=== PATIENT | male | born 1945 | race Caucasian/White ===

== ENCOUNTER 2020-05-28 09:44 | Outpatient (CLI) | payer BC, MEDICARE, SELFPAY ==
--- NOTE | ~2020-05-28 | XR_ITS ---
XR hip LT min 2V DATE: 05/28/2020 10:23 INDICATION: Left hip pain TECHNIQUE: AP, lateral and cross table lateral views COMPARISON: None FINDINGS: Mild left hip osteoarthritis. No fracture, dislocation, avascular necrosis or bone destru ction. The pubic symphysis and left sacroiliac joint are normal. Surgical clips overlie prostate bed. IMPRESSION: Mild left hip osteoarthritis Reviewed, dictated and finalized at location B.
== END 2020-05-28 09:45 | disposition home or self-care (01) ==
PROVIDERS: PCP Internal Medicine; Visit Provider Internal Medicine
DX: M16.12 Unilateral primary osteoarthritis, left hip (principal)
CPT/HCPCS: 73502

== ENCOUNTER 2020-08-25 13:31 | Outpatient (CLI) | payer BC, MEDICARE, SELFPAY ==
--- NOTE | ~2020-08-25 | US_ITS ---
EXAMINATION: US art doppler w press LE BI DATE: 08/25/2020 14:15 INDICATION: Peripheral vascular disease with claudication and numbness and tingling in the lower limb s. TECHNIQUE: Segmental pressures and plethysmographic and Doppler waveforms of the brachial and lower e xtremity arteries were obtained. COMPARISON: None. FINDINGS: Right and left brachial artery pressures of 160 mm Hg and 170 mm Hg, respectively, are concordant (no rmal difference <= 30 mmHg). The right and left high-thigh pressure indices are unable to be obtained due to inability to occlude the vessels (normal > 1.2). The right ankle-brachial index (SAROJ) is 1.06 (normal >= 0.9-1). The right great toe-brachial index (T BI) is 0.75 (normal >= 0.6-0.8). The right lower extremity segmental pressure gradients are increased between the right posterior tibial artery and both the right popliteal and dorsalis pedis arteries ( normal gradients <= 20-30 mmHg between adjacent levels on the same leg or the same levels on the two legs). Arterial waveforms are triphasic at the right common femoral artery and popliteal artery and b iphasic at the remaining arteries in the right lower limb with brisk systolic upstrokes throughout. The left SAROJ is 0.97. The left TBI is 0.51. The left lower extremity segmental pressure gradients are increased between the left dorsalis pedis artery and both the right dorsalis pedis artery and the le ft posterior tibial artery. Arterial waveforms are triphasic at the left common femoral and popliteal arteries and biphasic in the remaining arteries of the left lower limb with brisk systolic upstrokes throughout. IMPRESSION: 1. 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 2. No significant arterial occlusive disease to the right lower limb with normal right SAROJ and TBI. 3. Hypertension with systolic pressures at the brachial arteries of 160 and 170. Reviewed, dictated and finalized at location A. IMPRESSION: 1. 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 2. No significant arterial occlusive disease to the right lower limb with kenneth l right SAROJ and TBI. 3. Hypertension with systolic pressures at the brachial arteries of 160 and 170 .
--- NOTE | ~2020-08-25 | CT_ITS ---
EXAMINATION: CT lung screening DATE: 08/25/2020 14:23 INDICATION: Personal history of tobacco dependence, current smoker with 41 pack year history TECHNIQUE: Computed tomography (CT) of the chest was performed without intravenous contrast. The dose -length product (DLP) was 137.20 mGy-cm. Automated exposure control and iterative reconstruction tech [employer] were employed. COMPARISON: 08/06/2019 FINDINGS: There is mild emphysema. There are stable 6 mm nodules of the left upper lobe, left lower l obe, and the right middle lobe (images 39, 82, and 92, respectively). There is mild emphysema. No new pulmonary nodules are identified. 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 No p leural effusion or pneumothorax is identified. There is a small sliding hiatal hernia. Moderate thora cic spondylosis is noted. There is mild bilateral gynecomastia. No pathologically enlarged thoracic l ymph nodes are identified. The heart size is normal. Changes of coronary artery bypass grafting are n oted. Stones are present in the nondistended gallbladder. Punctate calcifications in an otherwise nor mal spleen likely represent healed granulomatous disease. IMPRESSION: 1. Lung-RADS category 2: Benign appearance or behavior. Continue annual screening with noncontrast lo w-dose chest CT in 12 months. Reviewed, dictated and finalized at location A. IMPRESSION: 1. Lung-RADS category 2: Benign appearance or behavior. Continue annual screeni ng with noncontrast low-dose chest CT in 12 months.
== END 2020-08-25 13:32 | disposition home or self-care (01) ==
LOC: ANHIMG 13:39
PROVIDERS: PCP Internal Medicine; Visit Provider Internal Medicine
DX: Z12.2 Encounter for screening for malignant neoplasm of respiratory organs (principal); Z87.891 Personal history of nicotine dependence; I70.90 Unspecified atherosclerosis; M79.89 Other specified soft tissue disorders; R09.89 Other specified symptoms and signs involving the circulatory and respiratory systems
CPT/HCPCS: 93923; G0297

== ENCOUNTER → 2021-04-11 01:58 | Outpatient (CLI) | payer BC, MEDICARE, SELFPAY ==
[2021-04-11 19:55] LABS: SARS-CoV-2 RNA PCR Negative
== END ==
PROVIDERS: PCP Internal Medicine; Visit Provider Internal Medicine Gastroenterology
DX: Z01.812 Encounter for preprocedural laboratory examination (principal); Z20.822 Contact with and (suspected) exposure to COVID-19
CPT/HCPCS: C9803; U0003; U0005

== ENCOUNTER 2021-04-15 02:10 | Day surgery (SDC) | payer BC, MEDICARE, SELFPAY ==
[2021-04-03 14:26] VITALS: BMI 26.4
[2021-04-15 08:33] VITALS: BP 151/62; PULSE 88; RESP 18; TEMP 35.7; O2SAT 99; BMI 25.0
--- NOTE | 2021-04-15 08:34 | PM.HPGS ---
History of Present Illness History of Present Illness Consent: Risks, benefits, and alternatives have been discussed and questions answered. Patient agrees to proceed with procedure. Chief complaint: positive cologuard Narrative: Duarte Felipe is a 75 year old male referred for colon cancer screening Review of Systems Review of Systems: All systems reviewed & are unremarkable except as noted in HPI and below PMFSH Past Medical History Medical History ASHD (arteriosclerotic heart disease) Benign essential hypertension BMI 25.0-25.9,adult BMI 26.0-26.9,adult Colon cancer screening Diminished pulses in lower extremity DJD (degenerative joint disease), multiple sites Elevated glucose Elevated homocysteine Encounter for routine adult health examination without abnormal findings Erectile dysfunction Follow up History of prostate cancer Left hip pain Leg cramps Mixed hyperlipidemia Need for influenza vaccination On correction drug therapy Personal history of nicotine dependence Positive colorectal cancer screening using Cologuard test Prostate cancer PVD (peripheral vascular disease) Smoker Tobacco abuse Surgical History Surgical History History of open heart surgery Family History Family History Father Acute myocardial infarction Sibling Diabetes mellitus Family history of liver disease Social History Social History Smoking packs per day: 1 Smoking cigarettes per day: 20.0 Years smoked: 50 Smoking pack-years: 50.00 Smoking status: Current every day smoker Tobacco type: cigarettes Alcohol intake: never Substance use: never Substance use type: does not use Living arrangements: with family Spiritual care concerns: No Meds Home Medications and Allergies Home Medications Medication Instructions Recorded Confirmed Type aspirin 81 mg tablet,delayed 81 mg PO DAILY 11/26/19 04/15/21 History release mecobalamin (vitamin B12) 1,000 1,000 mcg SUBLINGUAL DAILY 04/30/20 04/15/21 History mcg disintegrating tablet,sublingual folic acid 1 mg tablet 1 mg PO DAILY #90 tablet 09/23/20 04/15/21 Rx ezetimibe 10 mg tablet 10 mg PO DAILY #90 tablet 02/19/21 04/15/21 Rx atorvastatin 80 mg tablet 80 mg PO DAILY #90 tablet 03/11/21 04/15/21 Rx bupropion HCl 150 mg 24 hr tablet, 150 mg PO QAM #30 tablet 03/16/21 04/15/21 Rx extended release losartan 100 mg tablet See Rx Instructions .ROUTE 04/09/21 04/15/21 Rx .COMPLEX #90 tablet Allergies Allergy/AdvReac Type Severity Reaction Status Date / Time No Known Allergies Allergy Mild Verified 04/15/21 08:31 Exam Resp: Auscultation: clear to auscultation bilaterally Cardio: Rate: regular rate Rhythm: regular rhythm GI: GI Palp: Yes Soft to palpation and No Tenderness to palpation present (GI) Assessment and Plan Assessment and plan (1) Positive colorectal cancer screening using Cologuard test: Code(s): R19.5 - Other fecal abnormalities Status: Acute Assessment and Plan: Colonoscopy with possible biopsy or polypectomy or cautery or injection of substances.
[2021-04-15] MEDS: LACTATED RINGERS 1,000 ML 150 ML IV CONT (08:36)
--- NOTE | 2021-04-15 08:41 | WPDANESEPPF ---
Anes - Initial Pre Proc Eval Procedure: Operation Date: 04/15/21 09:00 Proposed Procedures p Colonoscopy - Julius Goodrich MD Date/Time: 04/15/21 08:41 Surgeon: Julius Goodrich MD Pre Op Diagnosis: positive cologuard Patient Data Age: 75 Gender: M Height: 6 ft Weight: 83.7 kg Last Vital Signs Temp 96.3 F L 04/15/21 08:33 Pulse 88 04/15/21 08:33 Resp 18 04/15/21 08:33 BP 151/62 H 04/15/21 08:33 Pulse Ox 99 04/15/21 08:33 Allergies Allergy/AdvReac Type Severity Reaction Status Date / Time No Known Allergies Allergy Mild Verified 04/15/21 08:31 Home Medications Medication Instructions Recorded Confirmed Type aspirin 81 mg tablet,delayed 81 mg PO DAILY 11/26/19 04/15/21 History release mecobalamin (vitamin B12) 1,000 1,000 mcg SUBLINGUAL DAILY 04/30/20 04/15/21 History mcg disintegrating tablet,sublingual folic acid 1 mg tablet 1 mg PO DAILY #90 tablet 09/23/20 04/15/21 Rx ezetimibe 10 mg tablet 10 mg PO DAILY #90 tablet 02/19/21 04/15/21 Rx atorvastatin 80 mg tablet 80 mg PO DAILY #90 tablet 03/11/21 04/15/21 Rx bupropion HCl 150 mg 24 hr tablet, 150 mg PO QAM #30 tablet 03/16/21 04/15/21 Rx extended release losartan 100 mg tablet See Rx Instructions .ROUTE 04/09/21 04/15/21 Rx .COMPLEX #90 tablet Patient hx anesthesia problems: none Family hx anesthesia problems: none PMFSH Past Medical History Medical History ASHD (arteriosclerotic heart disease) Benign essential hypertension BMI 25.0-25.9,adult BMI 26.0-26.9,adult Colon cancer screening Diminished pulses in lower extremity DJD (degenerative joint disease), multiple sites Elevated glucose Elevated homocysteine Encounter for routine adult health examination without abnormal findings Erectile dysfunction Follow up History of prostate cancer Left hip pain Leg cramps Mixed hyperlipidemia Need for influenza vaccination On long term care pharmacist drug therapy Personal history of nicotine dependence Positive colorectal cancer screening using Cologuard test Prostate cancer PVD (peripheral vascular disease) Smoker Tobacco abuse Surgical History Surgical History History of open heart surgery Family History Family History Father Acute myocardial infarction Sibling Diabetes mellitus Family history of liver disease Social History Social History Smoking packs per day: 1 Smoking cigarettes per day: 20.0 Years smoked: 50 Smoking pack-years: 50.00 Smoking status: Current every day smoker Tobacco type: cigarettes Alcohol intake: never Substance use: never Substance use type: does not use Living arrangements: with family Spiritual care concerns: No Anes - Eval Final PreProcedure Day of Procedure 04/15/21 08:41 Patient weight: overweight Heart: regular rate and rhythm Lungs: clear to auscultation Airway: Mallampati scale class III Neurological: alert and oriented Last oral intake: >/= 8 hours ASA classification: III Emergent: no Anesthetic plan: proceed Anesthesia type and monitoring: general GIVS and standard monitoring Informed Consent: The patient's anesthetic plan and its attendant risks and benefits were discussed with the patient/family/POA. Questions were solicited and answers provided to the satisfaction of the patient/family/POA.
[2021-04-15 09:28] VITALS: BP 103/56; PULSE 75; RESP 23; O2SAT 93
[2021-04-15 09:38] VITALS: BP 110/62; PULSE 77; RESP 28; O2SAT 98
[2021-04-15 09:48] VITALS: BP 129/64; PULSE 75; RESP 21; O2SAT 98
== END 2021-04-15 10:09 | disposition home or self-care (01) ==
PROVIDERS: PCP Internal Medicine; Visit Provider Internal Medicine Gastroenterology
PROC: 0DJD8ZZ Inspection of Lower Intestinal Tract, Via Natural or Artificial Opening Endoscopic (ICD-10-PCS; CPT 45378; principal; 2021-04-15 09:00)
DX: R19.5 Other fecal abnormalities (principal); D12.5 Benign neoplasm of sigmoid colon; D12.3 Benign neoplasm of transverse colon; I25.10 Atherosclerotic heart disease of native coronary artery without angina pectoris; I10 Essential (primary) hypertension; I73.9 Peripheral vascular disease, unspecified; C61 Malignant neoplasm of prostate; E78.2 Mixed hyperlipidemia; R73.9 Hyperglycemia, unspecified; M15.9 Polyosteoarthritis, unspecified; R09.89 Other specified symptoms and signs involving the circulatory and respiratory systems; F17.200 Nicotine dependence, unspecified, uncomplicated; Z79.899 Other long term (current) drug therapy
CPT/HCPCS: 45385; 45380; 88305; J2704; J7120

== ENCOUNTER 2021-07-17 07:41 | Outpatient (CLI) | payer BC, MEDICARE, SELFPAY ==
--- NOTE | ~2021-07-17 | XR_ITS ---
EXAMINATION: XR UGI w barium swallow EXAM DATE: 07/17/2021 08:14 INDICATION: D50.9 - Iron deficiency anemia, unspecified. TECHNIQUE: Standard single and double contrast barium esophagram and upper GI examination was perform ed by radiologist Kwadwo Wu M.D. Pulsed dose reduction fluoroscopy was used with fluoroscopic time of 0.5 minutes. The DAP for this procedure was 1.2 Gycm2. A total of 101 images obtained for the e xam. Correlation is made to chest CT 08/25/2020. FINDINGS: The pharynx is symmetric and without evidence of mass lesion or mucosal irregularity. Ther e is no esophageal stricture, diverticulum or mass identified. There is moderate-sized sliding gastr oesophageal hiatal hernia. Reflux was not specifically demonstrated during the exam. The stomach has a normal appearance without evidence of mass lesion, ulceration or filling defect. T here is normal rugal fold pattern. The duodenum and duodenal sweep are normal in appearance. There is a retrocardiac nodular density seen on several of the images. Correlation made to prior ches t CT, this is the 1 cm calcified left lower lobe granuloma. IMPRESSION: Moderate sliding gastroesophageal hiatal hernia. Reviewed, dictated and finalized at location A.
== END 2021-07-17 07:42 | disposition home or self-care (01) ==
LOC: ANHIMG 07:42
PROVIDERS: PCP Internal Medicine; Visit Provider Internal Medicine
DX: D50.9 Iron deficiency anemia, unspecified (principal); K44.9 Diaphragmatic hernia without obstruction or gangrene
CPT/HCPCS: 74240

== ENCOUNTER 2021-08-04 10:49 | Outpatient (CLI) | payer BC, MEDICARE, SELFPAY ==
--- NOTE | ~2021-08-04 | US_ITS ---
US renal BI 08/04/2021 11:45 Procedure: Realtime transabdominal ultrasound of the kidneys and bladder. Indication: Anemia Comparison: No prior studies for comparison. Findings: Renal echotexture is normal bilaterally without hydronephrosis, contour deforming mass or r enal calculus. The right kidney measures 10.6 cm and left kidney measures 12.2 cm. Bladder is not dis tended for evaluation. Impression: 1: Unremarkable renal ultrasound. No stones, masses or hydronephrosis. Reviewed, dictated and finalized at location A. Impression: 1: Unremarkable renal ultrasound. No stones, masses or hydronephrosis.
--- NOTE | ~2021-08-04 | US_ITS ---
EXAMINATION: US carotid duplex BI DATE: 08/04/2021 11:45 INDICATION: Carotid bruit TECHNIQUE: Grayscale, color Doppler, and pulsed Doppler images of the cervical carotid arteries were obtained. The degree of vessel stenosis is placed in one of the following categories: normal, <50%, 5 0-69%, >=70% but less than near-occlusion, near-occlusion, or total occlusion. Note that percent sten osis relative to normal distal artery lumen diameter is indirectly measured from velocity measurement s as described by Khoa, et al. Radiology 2003; 229:340-346. Notes: Normal: Peak systolic velocity <125 centimeters/sec and no plaque <50%. Peak systolic velocity <125 ( EDV <40; ICA/CCA PSV ratio <2.0; used these factors only a tandem lesions or low cardiac output or co ntralateral disease) 50-69 %: PSV 125-230 (EDV 40-100; ratio 2-4) >= 70% but less than near occlusion: PSV greater than 230 (EDV > 100; ratio> 4.0) Near Occlusion: PSV that is variable; markedly narrowed lumen Occlusion: Absent flow on color/spectral Doppler and no lumen on camacho scale. COMPARISON: None. FINDINGS: RIGHT: The right common carotid artery (CCA) peak systolic velocity (PSV) is 65 cm/s. The right internal car otid artery (ICA) PSV is 99 cm/s. The right ICA end-diastolic velocity (EDV) is 21 cm/s. The right IC A/CCA PSV ratio is 1.5. The external carotid artery (ECA) PSV is 388 cm/s. There is antegrade flow in the right vertebral artery. LEFT: The left CCA PSV is 97 cm/s. The left ICA PSV is 101 cm/s. The left ICA EDV is 22 cm/s. The left ICA/ CCA PSV ratio is 1.0. The ECA PSV is 81 cm/s. There is antegrade flow in the left vertebral artery. IMPRESSION: 1. Less than 50% stenosis in the right internal carotid artery by sonographic criteria. 2. Less than 50% stenosis in the left internal carotid artery by sonographic criteria. Reviewed, dictated and finalized at location A. IMPRESSION: 1. Less than 50% stenosis in the right internal carotid artery by sonographic letha hooker. 2. Less than 50% stenosis in the left internal carotid artery by sonographic reji acevedo.
== END 2021-08-04 10:50 | disposition home or self-care (01) ==
PROVIDERS: PCP Internal Medicine; Visit Provider Internal Medicine
DX: D50.9 Iron deficiency anemia, unspecified (principal); R09.89 Other specified symptoms and signs involving the circulatory and respiratory systems; I65.23 Occlusion and stenosis of bilateral carotid arteries
CPT/HCPCS: 76775; 93880

== ENCOUNTER 2021-08-26 08:47 | Outpatient (CLI) | payer BC, MEDICARE, SELFPAY ==
--- NOTE | ~2021-08-26 | CT_ITS ---
EXAMINATION:CT lung screening DATE: 08/26/2021 09:14 INDICATION: Personal history of tobacco dependence. Current smoker with 42 pack year history. TECHNIQUE: Computed tomography (CT) of the chest was performed without intravenous contrast. Automate d exposure control and iterative reconstruction technique were employed. The dose-length product (DLP ) was 139.75 mGy-cm. COMPARISON: Chest CT 08/25/2020 FINDINGS: There is mild emphysema. There is widespread peripheral septal thickening in the lungs asso ciated with groundglass opacities and architectural distortion, stable from 08/25/2020. No bronchiecta sis or honeycombing. Calcified bilateral lung nodules are consistent with old granulomatous disease. There is a 5 mm nodule in left upper lobe without change. There is a 7 mm nodule in lingula without c hange. No pleural effusion. The heart size is normal. There are coronary artery calcifications. There are changes of coronary bypass grafting. There is a small sliding hiatal hernia. There are gallstone s in the gallbladder, which is normal in size. Calcifications in the spleen are consistent with old g ranulomatous disease. There is mild thoracic spondylosis. IMPRESSION: 1. Lung-RADS category 2: Benign appearance or behavior. Continue annual screening with noncontrast lo w-dose chest CT in 12 months. Reviewed, dictated and finalized at location A. IMPRESSION: 1. Lung-RADS category 2: Benign appearance or behavior. Continue annual screeni ng with noncontrast low-dose chest CT in 12 months.
== END 2021-08-26 08:48 | disposition home or self-care (01) ==
LOC: ANHIMG 08:50
PROVIDERS: PCP Internal Medicine; Visit Provider Internal Medicine
DX: Z12.2 Encounter for screening for malignant neoplasm of respiratory organs (principal); Z87.891 Personal history of nicotine dependence
CPT/HCPCS: 71271

== ENCOUNTER 2021-09-04 00:46 | Day surgery (SDC) | payer BC, MEDICARE, SELFPAY ==
[2021-08-20 13:54] VITALS: BMI 25.1
--- NOTE | 2021-09-03 13:56 | PM.HPGS ---
History of Present Illness History of Present Illness Consent: Risks, benefits, and alternatives have been discussed and questions answered. Patient agrees to proceed with procedure. Chief complaint: BLAYNE Narrative: Duarte Felipe is a 75 year old male referred for investigation of iron deficiency anemia . Recent colonoscopy was negative except for the presence of 2 polyps. His iron saturation is 18% Review of Systems Review of Systems: All systems reviewed & are unremarkable except as noted in HPI and below PMFSH Past Medical History Medical History ASHD (arteriosclerotic heart disease) Benign essential hypertension BMI 24.0-24.9, adult BMI 25.0-25.9,adult BMI 26.0-26.9,adult Carotid bruit Colon cancer screening Diminished pulses in lower extremity DJD (degenerative joint disease), multiple sites Elevated glucose Elevated homocysteine Encounter for routine adult health examination without abnormal findings Erectile dysfunction Follow up Hiatal hernia History of prostate cancer Iron deficiency anemia Left hip pain Leg cramps Mixed hyperlipidemia Need for influenza vaccination On meter attendant drug therapy Personal history of nicotine dependence Positive colorectal cancer screening using Cologuard test Prostate cancer PVD (peripheral vascular disease) Smoker Tobacco abuse Surgical History Surgical History History of open heart surgery Family History Family History Father Acute myocardial infarction Sibling Diabetes mellitus Family history of liver disease Social History Social History Smoking packs per day: 1 Smoking cigarettes per day: 20.0 Years smoked: 50 Smoking pack-years: 50.00 Smoking status: Current every day smoker Tobacco type: cigarettes Alcohol intake: never Alcohol use details: 3-4 drinks per monthly Substance use: never Substance use type: does not use Living arrangements: with family Spiritual care concerns: No Meds Home Medications and Allergies Home Medications Medication Instructions Recorded Confirmed Type aspirin 81 mg tablet,delayed 81 mg PO DAILY 11/26/19 08/20/21 History release atorvastatin 80 mg tablet 80 mg PO DAILY #90 tablet 03/11/21 08/20/21 Rx bupropion HCl 150 mg PO DAILY 08/20/21 08/20/21 History ezetimibe 10 mg PO DAILY 08/20/21 08/20/21 History losartan 100 mg PO DAILY 08/20/21 08/20/21 History Allergies Allergy/AdvReac Type Severity Reaction Status Date / Time No Known Allergies Allergy Mild Verified 09/04/21 09:39 Exam Resp: Auscultation: clear to auscultation bilaterally Cardio: Rate: regular rate Rhythm: regular rhythm GI: GI Palp: Yes Soft to palpation and No Tenderness to palpation present (GI) Assessment and Plan Assessment and plan (1) Iron deficiency anemia: Qualifiers: Iron deficiency anemia type: unspecified iron deficiency Qualified Code(s): D50.9 - Iron deficiency anemia, unspecified Code(s): D50.9 - Iron deficiency anemia, unspecified Status: Acute Assessment and Plan: EGD with possible biopsy or dilatation or cautery.
[2021-09-04 09:40] VITALS: BP 148/56; PULSE 89; RESP 18; TEMP 36.1; O2SAT 99
--- NOTE | 2021-09-04 09:46 | WPDANESEPPF ---
Anes - Initial Pre Proc Eval Procedure: Operation Date: 09/04/21 11:00 Proposed Procedures p Esophagogastroduodenoscopy - Julius Goodrich MD Date/Time: 09/04/21 09:46 Surgeon: Julius Goodrich MD Pre Op Diagnosis: BLAYNE Patient Data Age: 75 Gender: M Height: 1.83 m Weight: 83.1 kg Last Vital Signs Temp 36.1 C L 09/04/21 09:40 Pulse 89 09/04/21 09:40 Resp 18 09/04/21 09:40 BP 148/56 H 09/04/21 09:40 Pulse Ox 99 09/04/21 09:40 Allergies Allergy/AdvReac Type Severity Reaction Status Date / Time No Known Allergies Allergy Mild Verified 09/04/21 09:39 Home Medications Medication Instructions Recorded Confirmed Type aspirin 81 mg tablet,delayed 81 mg PO DAILY 11/26/19 08/20/21 History release atorvastatin 80 mg tablet 80 mg PO DAILY #90 tablet 03/11/21 08/20/21 Rx bupropion HCl 150 mg PO DAILY 08/20/21 08/20/21 History ezetimibe 10 mg PO DAILY 08/20/21 08/20/21 History losartan 100 mg PO DAILY 08/20/21 08/20/21 History Patient hx anesthesia problems: none Family hx anesthesia problems: none Results Review: All pre-operative results and documents have been reviewed as part of the pre-operative evaluation. [facility] Past Medical History Medical History ASHD (arteriosclerotic heart disease) Benign essential hypertension BMI 24.0-24.9, adult BMI 25.0-25.9,adult BMI 26.0-26.9,adult Carotid bruit Colon cancer screening Diminished pulses in lower extremity DJD (degenerative joint disease), multiple sites Elevated glucose Elevated homocysteine Encounter for routine adult health examination without abnormal findings Erectile dysfunction Follow up Hiatal hernia History of prostate cancer Iron deficiency anemia Left hip pain Leg cramps Mixed hyperlipidemia Need for influenza vaccination On terminologist drug therapy Personal history of nicotine dependence Positive colorectal cancer screening using Cologuard test Prostate cancer PVD (peripheral vascular disease) Smoker Tobacco abuse Surgical History Surgical History History of open heart surgery Family History Family History Father Acute myocardial infarction Sibling Diabetes mellitus Family history of liver disease Social History Social History Smoking packs per day: 1 Smoking cigarettes per day: 20.0 Years smoked: 50 Smoking pack-years: 50.00 Smoking status: Current every day smoker Tobacco type: cigarettes Alcohol intake: never Alcohol use details: 3-4 drinks per monthly Substance use: never Substance use type: does not use Living arrangements: with family Spiritual care concerns: No Anes - Eval Final PreProcedure Day of Procedure 09/04/21 09:46 Patient weight: normal Heart: regular rate and rhythm Lungs: clear to auscultation Airway: Mallampati scale class II Neurological: alert and oriented Last oral intake: >/= 8 hours ASA classification: III Emergent: no Anesthetic plan: proceed Anesthesia type and monitoring: general GIVS and standard monitoring Results Review: All pre-operative results and documents have been reviewed as part of the pre-operative evaluation. Informed Consent: The patient's anesthetic plan and its attendant risks and benefits were discussed with the patient/family/POA. Questions were solicited and answers provided to the satisfaction of the patient/family/POA.
[2021-09-04] MEDS: LACTATED RINGERS 1,000 ML 150 ML IV CONT (09:54)
[2021-09-04 10:54] VITALS: BP 93/44; PULSE 75; RESP 20; O2SAT 98
[2021-09-04 11:04] VITALS: BP 108/46; PULSE 82; RESP 20; O2SAT 98
[2021-09-04 11:14] VITALS: BP 150/76; PULSE 76; RESP 17; O2SAT 100
== END 2021-09-04 11:24 | disposition home or self-care (01) ==
PROVIDERS: PCP Internal Medicine; Visit Provider Internal Medicine Gastroenterology
PROC: 0DJ08ZZ Inspection of Upper Intestinal Tract, Via Natural or Artificial Opening Endoscopic (ICD-10-PCS; CPT 43235; principal; 2021-09-04 11:00)
DX: D50.9 Iron deficiency anemia, unspecified (principal); K25.9 Gastric ulcer, unspecified as acute or chronic, without hemorrhage or perforation; K21.9 Gastro-esophageal reflux disease without esophagitis; K44.9 Diaphragmatic hernia without obstruction or gangrene; I25.10 Atherosclerotic heart disease of native coronary artery without angina pectoris; I10 Essential (primary) hypertension; I73.9 Peripheral vascular disease, unspecified; E78.2 Mixed hyperlipidemia; Z85.46 Personal history of malignant neoplasm of prostate; F17.210 Nicotine dependence, cigarettes, uncomplicated; Z79.82 Long term (current) use of aspirin
CPT/HCPCS: 43239; 87081; 88305; J2001; J2704; J7120

== ENCOUNTER 2022-04-07 12:19 | Outpatient (CLI) | payer BC, MEDICARE, SELFPAY ==
--- NOTE | ~2022-04-07 | XR_ITS ---
EXAM: XR shoulder RT min 2V HISTORY: M25.511 - Pain in right shoulder . COMPARISON: 11/06/2005. FINDINGS: Decreased mineralization. No fracture or dislocation. No lytic or blastic lesion. Severe b karol humeral narrowing with subchondral cyst formation and osteophytosis. Moderate degenerative change at the AC joint. Visualized lung parenchyma clear. Intact sternotomy wires. No erosion or periosteal change. Vascular calcifications. IMPRESSION: Severe right glenohumeral joint arthritis. Reviewed, dictated and finalized at location K.
--- NOTE | ~2022-04-07 | XR_ITS ---
EXAM: XR lumbar spine 2-3V HISTORY: NO INJURY LOW BACK AND RIGHT SHOULDER PAIN . COMPARISON: None available. FINDINGS: 5 nonrib-bearing lumbar-type vertebral bodies. Mild lumbar scoliosis Pedicles intact. Mild retrolisthesis at all levels in the lumbar spine. Vertebral body heights preserved. Multilevel sever e disc space narrowing, marginal osteophytosis, and vacuum disc phenomenon. Multilevel facet sclerosi s and interspinous narrowing. 3.7 cm infrarenal abdominal aortic aneurysm. Nephrolithiasis. IMPRESSION: 3.7 cm infrarenal abdominal aortic aneurysm, recommend abdominal aortic ultrasound for fu rther characterization. Multilevel grade 1 listheses, presumably on a degenerative basis. Multilevel severe degenerative disc disease. Multilevel facet arthropathy. Reviewed, dictated and finalized at location K. IMPRESSION: 3.7 cm infrarenal abdominal aortic aneurysm, recommend abdominal ao rtic ultrasound for further characterization. Multilevel grade 1 listheses, pre sumably on a degenerative basis. Multilevel severe degenerative disc disease. M ultilevel facet arthropathy.
== END 2022-04-07 12:20 | disposition home or self-care (01) ==
PROVIDERS: PCP Internal Medicine; Visit Provider Internal Medicine
DX: M51.36 Other intervertebral disc degeneration, lumbar region (principal); M19.011 Primary osteoarthritis, right shoulder
CPT/HCPCS: 72100; 73030

== ENCOUNTER 2022-04-23 10:21 | Outpatient (CLI) | payer BC, MEDICARE, SELFPAY ==
--- NOTE | ~2022-04-23 | US_ITS ---
EXAMINATION: US aorta DATE: 04/23/2022 11:28 INDICATION: Abdominal aortic aneurysm screening TECHNIQUE: Grayscale, color Doppler, and pulsed Doppler images of the aorta and common iliac arteries were obtained. COMPARISON: 12/04/2019 FINDINGS: The proximal aorta measures 2.8 cm. The mid aorta measures 1.9 cm. The distal aorta measures 2.8 cm. The right common iliac artery measures 1.3 cm. The left common iliac artery measures 1.2 cm. IMPRESSION: 1. Normal caliber abdominal aorta. Reviewed, dictated and finalized at location B.
== END 2022-04-23 10:22 | disposition home or self-care (01) ==
PROVIDERS: PCP Internal Medicine; Visit Provider Internal Medicine
DX: I71.4 Abdominal aortic aneurysm, without rupture (principal)
CPT/HCPCS: 76775

== ENCOUNTER 2022-08-24 11:48 | Outpatient (CLI) | payer BC, MEDICARE, SELFPAY ==
[2022-08-24 12:31] LABS: Basophils Percent Auto 0.5 % (0.2-1.2); Eosinophils Absolute Auto 0.1 K/mm3 (0-0.3); Eosinophils Percent Auto 0.9 % (0-4.4); Hematocrit 30.5 % (42.0-52.0); Hemoglobin 9.4 g/dL (14.0-18.0); Immature Granulocyte Absolute 0.03 K/mm3 (0.00-0.031); Immature Granulocyte Percent A 0.4 % (0-0.5); Lymphocytes Absolute Auto 1.11 K/mm3 (0.9-3.2); Lymphocytes Percent Auto 14.6 % (18.3-44.2); Mean Corpuscular HGB Conc 30.8 g/dl (32-36); Mean Corpuscular Hemoglobin 28.7 pg (26-34); Mean Corpuscular Volume 93.3 fl (80-100); Mean Platelet Volume 9.4 fl (7.4-10.4); Monocytes Absolute Auto 0.6 K/mm3 (0.1-0.6); Monocytes Percent Auto 7.6 % (2.6-8.5); Neutrophils Absolute Auto 5.8 K/mm3 (1.3-6.7); Platelet Count Result 259 k/mm3 (150-375); Red Blood Count 3.27 M/mm3 (4.6-6.20); Red Cell Distribution Width 15.6 % (11.5-14.5); White Blood Count 7.6 K/mm3 (4.5-10.0)
[2022-08-24 12:49] LABS: Anion Gap 10 mmol/L (8-16); Blood Urea Nitrogen 17 mg/dL (9-20); Calcium 8.9 mg/dL (8.4-10.2); Carbon Dioxide 20 mmol/L (22-30); Chloride 109 mmol/L (98-107); Estimated Glomerular Filt Rate 59; Glucose 110 mg/dL (65-110); Potassium 4.2 mmol/L (3.4-5.0); Sodium 139 mmol/L (137-145)
== END 2022-08-24 11:49 | disposition home or self-care (01) ==
PROVIDERS: PCP Internal Medicine; Visit Provider Internal Medicine
DX: K92.1 Melena (principal); D50.9 Iron deficiency anemia, unspecified; Z92.29 Personal history of other drug therapy
CPT/HCPCS: 36415; 80048; 85025

== ENCOUNTER 2022-10-07 09:21 | Observation (INO) | payer BC, MEDICARE, SELFPAY ==
--- NOTE | ~2022-10-07 | XR_ITS ---
XR chest 2V DATE: 10/07/2022 10:29 INDICATION: Shortness of breath with activity TECHNIQUE: PA and lateral views COMPARISON: 08/26/2021 CT lung screening FINDINGS: Status post sternotomy. Heart size is within normal range. Small sliding hiatal hernia. Calcified left lower lobe pulmonary granuloma. Minimal infiltrate, atelectasis or fibrotic change in the right midlung and right lung base, likely c hronic, with changes noted on 08/26/2021 CT examination in these areas. No pulmonary consolidation, pleural effusion, pulmonary vascular congestion or pneumothorax. No hilar or mediastinal enlargement. There is thoracic aortic calcification. IMPRESSION: Mild chronic right mid and lower lung changes No active cardiopulmonary disease Hiatal hernia Status post sternotomy Aortic calcification Reviewed, dictated and finalized at location B. E LAYOUT MARKER
--- NOTE | 2022-10-07 09:42 | ECG_ITS ---
Measurements Intervals [place] Rate: 81 P: 233 [place]: 318 QRS: 24 QRSD: 98 T: 61 QT: 367 QTc: 426 Interpretive Statements SINUS RHYTHM WITH MARKED FIRST DEGREE AV BLOCK CONSIDER INFERIOR INFARCT, AGE INDETERMINATE BORDERLINE ST-T WAVE ABNORMALITY- LAT/HIGH LAT LEADS BASELINE ARTIFACT- III, AVL, AVF, V6 ABNORMAL ECG NO PREVIOUS ECG AVAILABLE FOR COMPARISON Electronically Signed On 10-07-2022 11:07:22 [employer] by Jose Trevino D.O.
[2022-10-07 10:15] VITALS: BP 161/64; PULSE 83; RESP 14; TEMP 36.5; O2SAT 99
[2022-10-07 10:16] LABS: Basophils Percent Auto 0.4 % (0.2-1.2); Eosinophils Absolute Auto 0.1 K/mm3 (0-0.3); Eosinophils Percent Auto 1.5 % (0-4.4); Hematocrit 26.6 % (42.0-52.0); Hemoglobin 7.8 g/dL (14.0-18.0); Immature Granulocyte Absolute 0.06 K/mm3 (0.00-0.031); Immature Granulocyte Percent A 0.7 % (0-0.5); Lymphocytes Absolute Auto 1.17 K/mm3 (0.9-3.2); Lymphocytes Percent Auto 13.7 % (18.3-44.2); Mean Corpuscular HGB Conc 29.3 g/dl (32-36); Mean Corpuscular Hemoglobin 26.4 pg (26-34); Mean Corpuscular Volume 89.9 fl (80-100); Mean Platelet Volume 9.8 fl (7.4-10.4); Monocytes Absolute Auto 0.5 K/mm3 (0.1-0.6); Monocytes Percent Auto 6.3 % (2.6-8.5); Neutrophils Absolute Auto 6.6 K/mm3 (1.3-6.7); Neutrophils Percent Auto 77.4 % (45.5-73.1); Platelet Count Result 334 k/mm3 (150-375); Red Blood Count 2.96 M/mm3 (4.6-6.20); Red Cell Distribution Width 16.6 % (11.5-14.5); White Blood Count 8.6 K/mm3 (4.5-10.0)
[2022-10-07 10:27] LABS: Prothrombin Time 13.2 Seconds (11.1-14.7)
[2022-10-07 10:32] LABS: Alanine Aminotransferase 28 U/L (6-50); Alkaline Phosphatase 66 U/L (38-126); Anion Gap 11 mmol/L (8-16); Aspartate Amino Transferase 48 U/L (17-59); Bilirubin,Total 0.7 mg/dL (0.2-1.3); Blood Urea Nitrogen 15 mg/dL (9-20); Calcium 8.8 mg/dL (8.4-10.2); Carbon Dioxide 23 mmol/L (22-30); Chloride 103 mmol/L (98-107); Estimated Glomerular Filt Rate > 60; Glucose 140 mg/dL (65-110); Sodium 137 mmol/L (137-145)
[2022-10-07 10:44] LABS: Hypochromasia 1+ (NORMAL); Microcytosis 1+ (NORMAL); Platelet Estimate Adequate (Adequate); Schistocytes None Seen (NORMAL)
[2022-10-07 10:51] LABS: Appearance Urine Clear (Clear); Bilirubin Urine Negative (Negative); Blood Urine Negative (Negative); Color Urine Yellow (Yellow); Glucose Urine UA Negative (Negative); Ketones Urine Negative (Negative); Leukocyte Esterase Ur Negative LEU/UL (Negative); Nitrate Urine Negative (Negative); Protein Urine Negative (Negative); Urobilinogen Urine 0.2 mg/dL (<2.0); pH Urine 6.5 (5.0-9.0)
[2022-10-07 10:56] LABS: Add Urine Microscopic? NO
--- NOTE | 2022-10-07 11:22 | ED.GENADULT ---
HPI - General Adult General Chief complaint: Recheck/Abnormal Lab/Rx Stated complaint: low hgb Time Seen by Provider: 10/07/22 10:38 Source: patient and family Limitations: no limitations History of Present Illness HPI narrative: 76 years old white male presents with intermittent rectal bleeding for the last 4 to 5 months. Yesterday hemoglobin was 7.4. To 9.4 on August 24, 2022. Patient on Plavix and aspirin. He complains of general weakness, fatigue, stuffed head and coughing lately. He denies ill contact Related Data Home Medications Medication Instructions Recorded Confirmed aspirin 81 mg tablet,delayed 81 mg PO DAILY 11/26/19 08/27/22 release (Adult Low Dose Aspirin) cholecalciferol (vitamin D3) 25 25 mcg PO DAILY 11/25/21 08/27/22 mcg (1,000 unit) capsule ticagrelor 60 mg tablet (Brilinta) 60 mg PO Q12H 07/21/22 08/27/22 acetaminophen 500 mg tablet 500 mg PO Q6H PRN Pain 08/12/22 08/27/22 (Tylenol Extra Strength) vitamin B12 500 mcg-folic acid 400 1 tablet PO DAILY 08/12/22 08/27/22 mcg tablet Fiber Choice 2 QAM regularity 08/27/22 Allergies Allergy/AdvReac Type Severity Reaction Status Date / Time No Known Allergies Allergy Mild Verified 09/14/22 10:31 Review of Systems Review of Systems: All systems reviewed & are unremarkable except as noted in HPI and below PMFSH Past Medical History Medical History Antral ulcer ASHD (arteriosclerotic heart disease) Benign essential hypertension BMI 24.0-24.9, adult BMI 25.0-25.9,adult BMI 26.0-26.9,adult Borderline abnormal TFTs Carotid bruit Chronic low back pain Colon cancer screening Diminished pulses in lower extremity DJD (degenerative joint disease), multiple sites Elevated glucose Elevated homocysteine Encounter for routine adult health examination with abnormal findings Encounter for routine adult health examination without abnormal findings Erectile dysfunction Follow up Hiatal hernia History of bruising easily History of prostate cancer History of stress test Hypertension Iron deficiency anemia Left hip pain Leg cramps Leg cramps Loose stools Lung nodule Mixed hyperlipidemia Need for influenza vaccination Nonspecific urethritis On usp drug therapy Pain of male genitalia Personal history of nicotine dependence Positive colorectal cancer screening using Cologuard test Prostate cancer Prostate cancer screening PVCs (premature ventricular contractions) PVD (peripheral vascular disease) Right shoulder pain Smoker Swelling of right eye Tobacco abuse Surgical History Surgical History History of dental surgery History of open heart surgery S/P CABG x 4 Family History Family History Father Acute myocardial infarction Sibling Diabetes mellitus Family history of liver disease Social History Social History Smoking packs per day: 1 Smoking cigarettes per day: 20.0 Years smoked: 50 Smoking pack-years: 50.00 Smoking status: Current every day smoker Tobacco type: cigarettes Alcohol intake: never Alcohol use details: 3-4 drinks per monthly Substance use: never Substance use type: does not use Spiritual care concerns: No Exam Narrative: General appearance: Well-developed, well-nourished Skin: Pale Head: Normocephalic, nontraumatic Eyes: Clear conjunctiva ENT: Oropharynx normal, ears normal, nose normal Neck: Supple, nontender Chest and respiratory: Airway patent, no respiratory distress, no accessory muscle use Heart: Regular rate/rhythm Abdomen: Soft, nontender, no organomegaly, quiet bowel sounds, rectal exam showed red material, guaiac negative Vascular: Normal peripheral pulses, normal capillary refill. Musculoskeletal: Normal range of motion, nontender back Neurologic: Alert and orien
[2022-10-07 11:44] LABS: Influenza A QL RT-PCR Negative (Negative); Influenza B QL RT-PCR Negative (Negative); SARS-CoV-2 RNA PCR Negative
[2022-10-07 12:44] LABS: Hematocrit 23.8 % (42.0-52.0)
[2022-10-07 12:48] LABS: Hemoglobin 7.1 g/dL (14.0-18.0)
--- NOTE | 2022-10-07 13:47 | WPDGICN ---
Assessment and Plan Assessment and plan (1) Blood in stool: Code(s): K92.1 - Melena Status: Acute Assessment and Plan: Patient has a had intermittent rectal bleeding. This appears to have been exacerbated by recent anticoagulation required because of heart stents. This appears to be chronic. Plan for patient be transfused to a stable hemoglobin. Outpatient follow-up endoscopy is encouraged to hold hopefully anticoagulation could be held for brief time. We will allow this to be done by his established inspector purchased parts who will perform this in discussion with forklift supervisor at a safe time to discontinue anticoagulation briefly. 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 Nilson Goodrich. Anticoagulation will need to be held briefly if okay with cardiology service. It should be noted that APC cautery is not cautery is not definitive therapy, in fact it is difficult to negate the affects of radiation proctitis. (3) History of prostate cancer: Code(s): Z85.46 - Personal history of malignant neoplasm of prostate Status: Acute (4) ASHD (arteriosclerotic heart disease): Code(s): I25.10 - Atherosclerotic heart disease of [place] coronary artery without angina pectoris Status: Acute Assessment and Plan: Patient has a known history of atherosclerotic heart disease. History of prior CABG. Now it with recent stent placement May of 2022. Currently on anticoagulation brilenta which was changed to Plavix this week. This will need to be held briefly so that colonoscopy with APC cautery and possible follow-up EGD can be performed to evaluate for therapy of radiation proctitis. (5) History of gastric ulcer: Code(s): Z87.11 - Personal history of peptic ulcer disease Status: Acute GI Consult Note Consult date/time: 10/07/22 13:47 Reason for consult: rectal bleeding and anemia. HPI: Duarte Felipe is a 76 year old male I am asked to see in Dr. Goodrich's absence. Patient has a history of prostate cancer and previously received radiation therapy. Patient underwent GI endoscopy in March of 2021 at that time radiation proctitis was identified as well as 2 benign colon polyps were removed. He subsequently underwent an endoscopy by EGD in August of 2021 and a gastric ulcer with Philip erosions were identified. Patient did well until May of 2022 when cardiac stents were placed in patient was placed on Brilenta anticoagulation. Since that time patient has had intermittent rectal bleeding along with a gradual decline in hemoglobin. Today he was identified to have a drop of hemoglobin to 7.1 and for this reason sent to the emergency room for transfusion. Between primary care service Dr., Dr. Toure, forklift supervisor Dr. Willingham and inspector purchased parts Dr. Goodrich there has been discussion about holding anticoagulation in a patient with a recent stent and ability to do follow-up endoscopy and possible APC cautery of the proctitis. Over the last 1 week bright Lantus apparently was changed to Plavix. With the anticipation of eventual endoscopic therapy. Patient denies any abdominal pain. Review of Systems Review of Systems: Review of systems noncontributory. FORMERLY [facility], [facility] Past Medical History Medical History Antral ulcer ASHD (arteriosclerotic heart disease) Benign essential hypertension BMI 24.0-24.9, adult BMI 25.0-25.9,adult BMI 26.0-26.9,adult Borderline abnormal TFTs Carotid bruit Chronic low back pain Colon cancer screening Diminished pulses in lower extremity DJD (degenerative joint disease), multiple sites Elevated glucose Elevated homocysteine Encounter for routine adult health examination with abnormal findings Encounter for routine adult health examination without abnormal findings Erectile dysfunction Follow
--- NOTE | 2022-10-07 13:56 | PM.IMHP ---
H&P: HPI History of Present Illness Date/Time: 10/07/22 13:56 Chief Complaint: Low hemoglobin Narrative: This is a 76-year-old male patient who has had intermittent rectal bleeding for the last 4-5 months. Patient's hemoglobin is now 7.1. The patient's hemoglobin has dropped slowly since 07/08/2021 when his hemoglobin was 12.1. Earlier today his hemoglobin was 7.8. Last month 7.4. The patient was seen by Gastroenterology on 09/14/2022 and it was noted that the patient had intermittent rectal bleeding at the time. The patient was started on Canasa suppositories back in June and reported improvement in the rectal bleeding. Patient recently had a cardiac stent back in May of this year and has been on Brilinta and unfortunately they were not able to stop that medication to do a flex sigmoidoscopy. The patient did follow-up with his volcanologist last month discuss a colonoscopy. However cardiology did not recommend that the patient is to be taken off of his medication so soon after receiving a cardiac stent. GI has been consulted today and has seen the patient. The patient was given Protonix IV. The patient is being admitted to observation status on the date of service of 10/07/2022. Review of Systems Review of Systems: See HPI All systems reviewed & are unremarkable except as noted in HPI and below Constitutional: Constitutional: Reports as per HPI and Reports no additional constitutional complaints Eyes: Eyes: Reports as per HPI and Reports no additional eye complaints ENT: Reports system reviewed and no additional complaints, except as documented and Reports Normal hearing present Cardiovascular: Cardiovascular: Reports no additional cardiovascular complaints Respiratory: Respiratory: Reports no additional respiratory complaints and Reports no additional respiratory complaints Gastrointestinal: Gastrointestinal: Reports as per HPI and Reports no additional gastrointestinal complaints Musculoskeletal: Musculoskeletal: Reports no additional musculoskeletal complaints Integumentary/Breasts: Skin/Breast: Reports system reviewed and no additional complaints, except as docu and Reports as per HPI Neurologic: Reports system reviewed and no additional complaints, except as documented, Reports as per HPI and Reports Normal hearing present Psychiatric: Psychiatric: Reports no additional psychiatric complaints and Reports as per HPI Endocrine: Endocrine: Reports no additional endocrine complaints Hematologic/Lymphatic: Hematologic/Lymphatic: Reports no additional hematologic/lymphatic complaints Allergic/Immunologic: Allergic/Immunologic: Reports no additional allergic/immunologic complaints [facility] Past Medical History Medical History (Updated 10/07/22 @ 16:08 by Laina Shankar NP) Aneurysm of infrarenal abdominal aorta Seen on Lumbar Spine Xray Antral ulcer ASHD (arteriosclerotic heart disease) Benign essential hypertension BMI 24.0-24.9, adult BMI 25.0-25.9,adult BMI 26.0-26.9,adult Borderline abnormal TFTs Carotid bruit Chronic low back pain Colon cancer screening Diminished pulses in lower extremity DJD (degenerative joint disease), multiple sites Elevated glucose Elevated homocysteine Encounter for routine adult health examination with abnormal findings Encounter for routine adult health examination without abnormal findings Erectile dysfunction Follow up Hiatal hernia History of bruising easily History of gastric ulcer History of prostate cancer History of stress test Hypertension Iron deficiency anemia Left hip pain Leg cramps Leg cramps Loose stools Lung nodule Mixed hyperlipidemia Need for influenza vaccination Nonspecific urethritis On senior care drug therapy Pain of male genitalia Personal history of nicotine dependence Positive colorectal cancer screening using Cologuard test Prostate cancer Prostate cancer screening PVCs (premature ventricular contractions) PVD (peripheral vascular disease) Ri
--- NOTE | 2022-10-07 14:22 | ADMGEN ---
This patient, Duarte Felipe, was admitted to [facility] Surg Room 330-02. Patient/family oriented to hospital policies and general routines including ID bracelet, bed and alarms, visiting hours, pain management, procedures, bathroom and other care routines, personal items, smoking policy, room service/diet, and visiting hours. Information on how to activate the Rapid Response Team has been discussed. Patient/Family are encouraged to report perceived risks to care and to ask questions if they do not understand what they are told or what they should do.
[2022-10-07 14:25] VITALS: BMI 23.6
[2022-10-07] MEDS: SODIUM CHLORIDE 0.9% IV 1,000 ML 125 ML IV CONT ×2 (14:35→23:03)
[2022-10-07] MEDS: PANTOPRAZOLE SODIUM IV 40 MG VIAL IV PUSH (15:37)
[2022-10-07 15:54] VITALS: BP 158/66; PULSE 79; RESP 20; TEMP 36.2; O2SAT 97
[2022-10-07 18:14] LABS: Hematocrit 23.8 % (42.0-52.0)
[2022-10-07 18:29] LABS: Hemoglobin 7.1 g/dL (14.0-18.0)
[2022-10-07 18:56] VITALS: BP 141/61; BP 148/54; BP 156/61; PULSE 88; PULSE 90; PULSE 94; RESP 20; TEMP 36.2; O2SAT 97; O2SAT 98
[2022-10-07 22:21] VITALS: BP 171/73; PULSE 87; RESP 16; TEMP 36.3; O2SAT 98
[2022-10-07 22:58] LABS: Hematocrit 23.5 % (42.0-52.0)
--- NOTE | 2022-10-07 23:04 | PC.NURSE ---
call received from lab reporting hgb at 7. NOT a critical value, at pt's baseline, no orders to transfuse at this time
[2022-10-08 06:03] VITALS: BP 154/60; PULSE 74; RESP 16; TEMP 36.3; O2SAT 98
[2022-10-08 07:47] LABS: Hematocrit 23.5 % (42.0-52.0)
[2022-10-08 07:57] LABS: Hemoglobin 6.9 g/dL (14.0-18.0)
[2022-10-08] MEDS: CLOPIDOGREL BISULFATE 75 MG TABLET PO (07:58)
[2022-10-08] MEDS: ATORVASTATIN 40 MG TABLET BY MOUTH (07:58)
[2022-10-08] MEDS: PANTOPRAZOLE SODIUM IV 40 MG VIAL IV PUSH (07:59)
[2022-10-08] MEDS: buPROPion HCL XL (24 HR) 150 MG TABCR BY MOUTH (07:59)
[2022-10-08] MEDS: ASPIRIN 81 MG ENTERIC TABLET PO (07:59)
[2022-10-08] MEDS: CHOLECALCIFEROL 1,000 UNITS TABLET 1000 UNITS PO (07:59)
[2022-10-08] MEDS: FOLIC ACID 1 MG TABLET PO (07:59)
[2022-10-08] MEDS: LOSARTAN POTASSIUM 100 MG TABLET BY MOUTH (07:59)
[2022-10-08] MEDS: CYANOCOBALAMIN 500 MCG TABLET PO (07:59)
[2022-10-08 08:00] VITALS: BP 155/57; PULSE 89; RESP 16; TEMP 36.7; O2SAT 99
[2022-10-08 08:23] LABS: Alanine Aminotransferase 20 U/L (6-50); Albumin Level 3.3 g/dL (3.5-5.1); Alkaline Phosphatase 62 U/L (38-126); Anion Gap 10 mmol/L (8-16); Aspartate Amino Transferase 28 U/L (17-59); Bilirubin,Total 0.3 mg/dL (0.2-1.3); Blood Urea Nitrogen 10 mg/dL (9-20); Calcium 8.2 mg/dL (8.4-10.2); Carbon Dioxide 24 mmol/L (22-30); Chloride 105 mmol/L (98-107); Estimated CRCL calculation 63 ml/min; Estimated Glomerular Filt Rate > 60; Glucose 91 mg/dL (65-110); Potassium 4.2 mmol/L (3.4-5.0); Sodium 139 mmol/L (137-145)
[2022-10-08 10:27] VITALS: BMI 23.6
--- NOTE | 2022-10-08 11:04 | PM.DS ---
DS: Admitting Diagnosis Discharge Date rectal bleeding Admitting Diagnosis Rectal bleeding DS: Discharge Diagnosis Discharge Diagnosis (1) CAD (coronary artery disease): Code(s): I25.10 - Atherosclerotic heart disease of [place] coronary artery without angina pectoris Status: Acute (2) GI bleed: Code(s): K92.2 - Gastrointestinal hemorrhage, unspecified Status: Acute (3) Anemia: Code(s): D64.9 - Anemia, unspecified Status: Acute (4) Radiation proctitis: Code(s): K62.7 - Radiation proctitis Status: Acute DS: Summary Hospital Course Hospital Course: Patient is a 36-year-old male who came to the hospital bed rectal bleeding. Patient has history of coronary disease status post stent currently on Plavix and aspirin still has some rectal bleeding. Patient advised to get a colonoscopy as outpatient. Anemia due to acute blood loss will continue to monitor closely. High blood pressure well controlled. Patient would like to go home and follow-up as an outpatient with his primary care physician Status at Discharge Functional status at discharge: independent ambulation Time Spent with Patient Time attestation: Total time spent providing and/or coordinating discharge services: Time spent: Less than 30 minutes Exam Narrative: GENERAL: Well appearing, well-nourished, non-toxic, in no acute distress. HEAD: Normocephalic, atraumatic. NECK: Supple. No adenopathy, no masses. RESPIRATORY: Airway patent, respirations nonlabored. Clear to auscultation bilaterally, no rales, rhonchi, wheezing. CARDIOVASCULAR: Regular rate and rhythm without murmurs, rubs, or gallops. Peripheral pulses 2+ and equal bilaterally. ABDOMINAL: Soft, nontender, nondistended, no hepatosplenomegaly. Normoactive BS. MUSCULOSKELETAL: no Epigastric and no hypochondrial tenderness SKIN: Warm, dry, normal color. No rashes. NEURO: A&O X3. Moves all extremities PSYCHIATRIC: Appropriate mood and affect. Normal interaction. DS: Data Data Completed and Pending Labs on day of discharge: Labs from last 24 hours 10/08/22 10/08/22 10/08/22 06:51 06:51 06:51 Hgb 6.9 L* Hct 23.5 L Sodium 139 Potassium 4.2 Chloride 105 Carbon Dioxide 24 Anion Gap 10 BUN 10 D Creatinine 1.00 Estim Creat Clear Calc 63 Estimated GFR > 60 Glucose 91 Calcium 8.2 L Magnesium 2.0 Ferritin Pending Total Bilirubin 0.3 AST 28 ALT 20 Alkaline Phosphatase 62 Total Protein 6.0 L Albumin 3.3 L Influenza A (RT-PCR) Influenza B (RT-PCR) SARS-CoV-2 RNA (RT-PCR) Blood Type Antibody Screen 10/07/22 10/07/22 10/07/22 22:47 17:45 17:45 Hgb 7.0 L 7.1 L Hct 23.5 L 23.8 L Sodium Potassium Chloride Carbon Dioxide Anion Gap BUN Creatinine Estim Creat Clear Calc Estimated GFR Glucose Calcium Magnesium Ferritin Total Bilirubin AST ALT Alkaline Phosphatase Total Protein Albumin Influenza A (RT-PCR) Influenza B (RT-PCR) SARS-CoV-2 RNA (RT-PCR) Blood Type B Positive Antibody Screen Negative 10/07/22 10/07/22 12:35 11:01 Hgb 7.1 L Hct 23.8 L Sodium Potassium Chloride Carbon Dioxide Anion Gap BUN Creatinine Estim Creat Clear Calc Estimated GFR Glucose Calcium Magnesium Ferritin Total Bilirubin AST ALT Alkaline Phosphatase Total Protein Albumin Influenza A (RT-PCR) Negative Influenza B (RT-PCR) Negative SARS-CoV-2 RNA (RT-PCR) Negative Blood Type Antibody Screen Discharge Plan Discharge Consulting providers: Raphael Herzog Discharging Clinician: Willard Alvarado Patient Disposition: Home, Self-Care Activity: as tolerated Diet: heart healthy Patient Instructions: Antibiotic Form, How to Stop Smoking (GEN), Cigarette Smoking and Your Health (GEN) Stand Alone Forms: General Discharge
--- NOTE | 2022-10-08 11:39 | PC.NURSE ---
Spoke with Dr Alvarado in regards to patients HGB at 6.9 and he is wanting to D/C patient, he states since patient is not symptomatic and is hovering around the same number he is okay with patient following up with his primary care doctor as long as GI cleared him
[2022-10-08 12:00] VITALS: BP 157/65; PULSE 92; RESP 18; TEMP 36.4; O2SAT 100
--- NOTE | 2022-10-08 12:08 | WPDGIPROGNO ---
Progress Note: A&P Assessment and Plan (1) Radiation proctitis: Code(s): K62.7 - Radiation proctitis Status: Acute Assessment and Plan: intermittent bleeding in the setting of anticoagulant that he needs because cardiac history and previous stents he will follow-up with Dr Goodrich for outpatient colonoscopy (2) Blood in stool: Code(s): K92.1 - Melena Status: Acute (3) Acute on chronic anemia: Code(s): D64.9 - Anemia, unspecified Status: Acute Assessment and Plan: monitor h/h as outpatient and transfuse as needed if hb<7 tricky situation because he still needs to be on anticoagulation denies overt gib (4) CAD (coronary artery disease): Code(s): I25.10 - Atherosclerotic heart disease of [place] coronary artery without angina pectoris Status: Acute (5) Anticoagulant long-term use: Code(s): Z79.01 - gem setter (current) use of anticoagulants Status: Acute (6) Prostate cancer: Code(s): C61 - Malignant neoplasm of prostate Status: Acute Subjective Date/time seen: 10/08/22 12:08 Interval history: doing well, denies any more bleeding Review of Systems Review of Systems: All systems reviewed & are unremarkable except as noted in HPI and below Exam Const: General: comfortable and no acute distress HENMT: Face/Nose/Sinus: Normal nares present Eyes: General: appearance normal, both eyes and all related structures Neck: Neck: no JVD Resp: Auscultation: clear to auscultation bilaterally Cardio: Rate: regular rate Rhythm: regular rhythm GI: Inspection: non-distended GI Palp: Yes Soft to palpation and No Tenderness to palpation present (GI) Auscultation: normal bowel sounds Skin: General skin exam: normal color Neuro: Speech: normal speech Extrem: General: normal to inspection Psych: Mental Status: mental status grossly normal Objective Data Vital Signs Vital Signs: Vital Signs - 24 hr 10/07/22 14:52 10/07/22 15:54 10/07/22 18:56 Temperature 97.2 F L 97.1 F L Pulse Rate 79 88 Respiratory Rate 20 20 Blood Pressure 158/66 H 141/61 H Pulse Oximetry 97 98 Oxygen Delivery Room Air 10/07/22 18:56 10/07/22 18:56 10/07/22 22:21 Temperature 97.1 F L 97.1 F L 97.4 F L Pulse Rate 90 94 87 Respiratory Rate 20 20 16 Blood Pressure 148/54 H 156/61 H 171/73 H Pulse Oximetry 97 98 98 Oxygen Delivery 10/08/22 06:03 10/08/22 08:00 10/08/22 08:00 Temperature 97.3 F L 98.1 F Pulse Rate 74 89 Respiratory Rate 16 16 Blood Pressure 154/60 H 155/57 H Pulse Oximetry 98 99 Oxygen Delivery Room Air Intake/Output Intake/Output: Intake & Output 10/05/22 10/06/22 10/07/22 10/08/22 23:59 23:59 23:59 23:59 Intake Total 1436 480 Output Total 650 900 Balance 786 -420 Meds/Results Medications: Active Medications Generic Name Dose Route Start Last Admin Trade Name Freq PRN Reason Stop Dose Admin Acetaminophen 500 mg 10/07/22 16:13 Acetaminophen 500 Mg Tablet PO Q6H PRN Pain Aspirin 81 mg 10/08/22 09:00 10/08/22 07:59 Aspirin 81 Mg Enteric Tablet PO 81 mg DAILY HILDA Administration Atorvastatin Calcium 40 mg 10/08/22 09:00 10/08/22 07:58 Atorvastatin 40 Mg Tablet BY MOUTH 40 mg DAILY HILDA Administration Bupropion HCl 150 mg 10/08/22 09:00 10/08/22 07:59 Bupropion Hcl Xl (24 Hr) 150 Mg Tabcr BY MOUTH 150 mg DAILY HILDA Administration Clopidogrel Bisulfate 75 mg 10/08/22 09:00 10/08/22 07:58 Clopidogrel Bisulfate 75 Mg Tablet PO 11/07/22 08:59 75 mg DAILY HILDA Administration Cyanocobalamin 500 mcg 10/08/22 09:00 10/08/22 07:59 Cyanocobalamin 500 Mcg Tablet PO 11/07/22 08:59 500 mcg DAILY HILDA Administration Folic Acid 1 mg 10/08/22 09:00 10/08/22 07:59 Folic Acid 1 Mg Tablet PO 1 mg DAILY HILDA Administration Sodium Chloride 1,000 mls @ 125 mls/hr 10/07/22 11:35 10/08/22 07:59 Normal Saline Iv IV CON
== END 2022-10-08 15:19 | disposition home or self-care (01) ==
LOC: ANHED 11:29 → ANH3MEDSUR 13:55
PROVIDERS: Nurse Practitioner; Admitting Provider Internal Medicine; Emergency Provider Emergency Medicine; PCP Internal Medicine; Visit Provider Internal Medicine
DX: K92.2 Gastrointestinal hemorrhage, unspecified (principal); I25.10 Atherosclerotic heart disease of native coronary artery without angina pectoris; Z95.5 Presence of coronary angioplasty implant and graft; Z95.1 Presence of aortocoronary bypass graft; D64.9 Anemia, unspecified; Z92.3 Personal history of irradiation; Y84.2 Radiological procedure and radiotherapy as the cause of abnormal reaction of the patient, or of later complication, without mention of misadventure at the time of the procedure; K62.7 Radiation proctitis; I10 Essential (primary) hypertension; E78.5 Hyperlipidemia, unspecified; D50.9 Iron deficiency anemia, unspecified; I73.9 Peripheral vascular disease, unspecified; I49.3 Ventricular premature depolarization; K44.9 Diaphragmatic hernia without obstruction or gangrene; I70.0 Atherosclerosis of aorta; M19.90 Unspecified osteoarthritis, unspecified site; R94.31 Abnormal electrocardiogram [ECG] [EKG]; F17.210 Nicotine dependence, cigarettes, uncomplicated; F10.90 Alcohol use, unspecified, uncomplicated; Z20.822 Contact with and (suspected) exposure to COVID-19; Z79.82 Long term (current) use of aspirin; Z85.46 Personal history of malignant neoplasm of prostate; Z87.11 Personal history of peptic ulcer disease; Z79.899 Other long term (current) drug therapy; Z79.02 Long term (current) use of antithrombotics/antiplatelets; Z82.49 Family history of ischemic heart disease and other diseases of the circulatory system; Z83.3 Family history of diabetes mellitus; Z83.79 Family history of other diseases of the digestive system
CPT/HCPCS: 36415; 71046; 80053; 81003; 82728; 83735; 85014; 85018; 85025; 85610; 86850; 86900; 86901; 87636; 93005; 96361; 96374; 99285; A9270; C9113; G0378; G0379; J7030

== ENCOUNTER → 2023-03-11 13:44 | Outpatient (CLI) | payer BC, MEDICARE, SELFPAY ==
--- NOTE | ~2023-03-11 | MR_ITS ---
MRI of the lumbar spine Clinical History: Lumbar radicular pain Technique: Axial T2-weighted images, and sagittal T1-weighted, T2-weighted, and T2 fat-sat images wer e acquired. Findings: No fracture identified in the lumbar spine. 4 mm retrolisthesis of L2 over L3 present. 5 mm retrolisthesis of L3 over L4 present. 5 mm retrolisthesis of L4 over L5 present. No suspicious bone marrow signal abnormality seen. At L1-L2, there is mild facet joint hypertrophy. No disc bulge or herniation. No spinal canal stenosi s or neural foraminal narrowing. At L2-L3, there is advanced degenerative disc 9. Mild disc bulge and moderate facet arthropathy are p resent. No mary spinal canal stenosis. There is moderate bilateral neural foraminal narrowing. At L3-L4, there is advanced degenerative disc narrowing. Disc bulge and facet arthropathy are present , with bilateral lateral recess stenosis and mild central canal stenosis. There is moderate to severe left neural foraminal narrowing and severe right neural foraminal narrowing. At L4-L5, there is advanced degenerative disc narrowing. Disc bulge and severe facet arthropathy are present. There is probable right lateral recess stenosis. There is severe bilateral neural foraminal narrowing, right worse than left. At L5-S1, there is advanced degenerative disc narrowing. There is diffuse disc bulge with severe face t arthropathy. There is severe right neural foraminal narrowing and moderate to severe left neural fo raminal narrowing. No central canal stenosis. Paravertebral soft tissues are unremarkable. Impression: Advanced degenerative spondylosis, as detailed above, with multilevel moderate to severe bilateral ne ural foraminal narrowing. 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 Reviewed, dictated and finalized at [facility]. Impression: Advanced degenerative spondylosis, as detailed above, with multilevel moderate to severe bilateral neural foraminal narrowing. 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
== END ==
PROVIDERS: PCP Internal Medicine; Visit Provider Nurse Practitioner Family
DX: M47.26 Other spondylosis with radiculopathy, lumbar region (principal)
CPT/HCPCS: 72148

== ENCOUNTER 2023-06-27 13:28 | Outpatient (CLI) | payer BC, MEDICARE, SELFPAY ==
--- NOTE | ~2023-06-27 | US_ITS ---
EXAMINATION: US carotid duplex BI DATE: 06/27/2023 13:59 INDICATION: Right carotid bruit. Other specified symptoms and signs involving the circulatory system. TECHNIQUE: Grayscale, color Doppler, and pulsed Doppler images of the cervical carotid arteries were obtained. The degree of vessel stenosis is placed in one of the following categories: normal, <50%, 5 0-69%, >=70% but less than near-occlusion, near-occlusion, or total occlusion. Note that percent sten osis relative to normal distal artery lumen diameter is indirectly measured from velocity measurement s as described by Khoa, et al. Radiology 2003; 229:340-346. COMPARISON: ultrasound 08/04/21 FINDINGS: RIGHT: The right common carotid artery (CCA) peak systolic velocity (PSV) is 64 cm/s. The right internal car otid artery (ICA) PSV is 151 cm/s. The right ICA end-diastolic velocity (EDV) is 36 cm/s. The right I CA/CCA PSV ratio is 2.4. Grayscale and color Doppler images yield an estimate of <50%diameter reducti on from plaque in the ICA. There is antegrade flow in the right vertebral artery. LEFT: The left CCA PSV is 98 cm/s. The left ICA PSV is 97 cm/s. The left ICA EDV is 13 cm/s. The left ICA/C CA PSV ratio is 1.0. Grayscale and color Doppler images yield an estimate of <50% diameter reduction from plaque in the ICA. There is antegrade flow in the left vertebral artery. IMPRESSION: 1. <50% stenosis in the right internal carotid artery. 2. <50% stenosis in the left internal carotid artery. Reviewed, dictated and finalized at location A.
--- NOTE | ~2023-06-27 | CT_ITS ---
EXAMINATION: CT lung screening DATE: 06/27/2023 13:58 INDICATION: Z72.0 - Tobacco use TECHNIQUE: Computed tomography (CT) of the chest was performed without intravenous contrast. Addition al 3D reconstructions utilizing coronal maximum intensity projection (MIP) were performed. Automated exposure control and iterative reconstruction technique were employed. The dose-length product was 14 0.36 mGy-cm. COMPARISON: 08/26/2021 FINDINGS: Mild emphysema. There are scattered peripheral groundglass opacities with irregular septal line thick ening with peripheral and lower lung predominance. Persistent peripheral lucencies at a few of the re gions of interstitial lung disease, unclear whether honeycombing or related to emphysema. No interval change in a few scattered noncalcified pulmonary nodules, the largest measuring 6 mm in the right mi ddle lobe and lingula. There are few scattered bilateral small calcified pulmonary nodules consistent with old granulomatous disease. 4 mm lenticular likely intrafissural lymph nodes along both the left and right major fissures. No pneumonia, pulmonary edema or pleural effusion. Heart size is normal. E xtensive atherosclerotic coronary artery calcifications. Median sternotomy and coronary artery bypass grafting. Thoracic aorta is normal in caliber. No pathologically enlarged thoracic lymphadenopathy. Few small calcified gallstones along the dependent aspect of the nondilated gallbladder with no wall thickening or pericholecystic stranding to suggest acute cholecystitis. Moderate thoracic and severe upper lumbar spondylosis. IMPRESSION: 1. Lung-RADS category 2: Benign appearance or behavior. Continue annual screening with noncontrast lo w-dose chest CT in 12 months. 2. Mild emphysema and relatively stable appearance of chronic interstitial lung disease with pattern consistent with either nonspecific interstitial pneumonia (NSIP) or usual interstitial pneumonia (UIP ). 3. Cholelithiasis. Reviewed, dictated and finalized at location B. IMPRESSION: 1. Lung-RADS category 2: Benign appearance or behavior. Continue annual screeni ng with noncontrast low-dose chest CT in 12 months. 2. Mild emphysema and relatively stable appearance of chronic interstitial lung disease with pattern consistent with either nonspecific interstitial pneumonia (NSIP) or usual interstitial pneumonia (UIP). 3. Cholelithiasis.
== END 2023-06-27 13:29 | disposition home or self-care (01) ==
PROVIDERS: PCP Internal Medicine; Visit Provider Internal Medicine
DX: Z12.2 Encounter for screening for malignant neoplasm of respiratory organs (principal); F17.210 Nicotine dependence, cigarettes, uncomplicated; R09.89 Other specified symptoms and signs involving the circulatory and respiratory systems; K80.20 Calculus of gallbladder without cholecystitis without obstruction; I65.23 Occlusion and stenosis of bilateral carotid arteries
CPT/HCPCS: 71271; 93880

== ENCOUNTER 2023-08-26 09:05 | Outpatient (CLI) | payer BC, MEDICARE, SELFPAY ==
[2023-08-26 11:24] LABS: Prostate Specific Antigen 3.7 ng/mL (< OR = 4.0)
== END 2023-08-26 09:06 | disposition home or self-care (01) ==
LOC: ANHLAB 09:10
PROVIDERS: PCP Internal Medicine; Visit Provider Urology
DX: C61 Malignant neoplasm of prostate (principal)
CPT/HCPCS: 36415; 84153; G0103

== ENCOUNTER 2023-11-02 11:00 | Outpatient (CLI) | payer BC, MEDICARE, SELFPAY ==
[2023-11-02 12:26] LABS: Prostate Specific Antigen 3.9 ng/mL (< OR = 4.0)
== END 2023-11-02 11:01 | disposition home or self-care (01) ==
PROVIDERS: PCP Internal Medicine; Visit Provider Urology
DX: C61 Malignant neoplasm of prostate (principal)
CPT/HCPCS: 36415; 84153

== ENCOUNTER 2023-11-30 12:44 | Outpatient (CLI) | payer BC, MEDICARE, SELFPAY ==
--- NOTE | ~2023-11-30 | PE_ITS ---
EXAMINATION: PET_PETPSMAST_PT DATE: 11/30/2023 15:52 INDICATION: Prostate cancer. TECHNIQUE: 8.719 mCi of piflufolastat F-18 was administered intravenously. Low dose computed tomograp hy (CT) images were acquired from the base of the brain to the proximal thighs for attenuation correc tion and anatomic localization. Automated exposure control was employed. Dose-length product (DLP) wa s 626 mGy-cm. Positron emission tomography (PET) images were acquired in the same distribution. COMPARISON: Chest CT 06/27/2023, CT abdomen and pelvis 04/14/2018 FINDINGS: Head/neck: There are no pathologically enlarged lymph nodes. Chest: There are widespread septal thickening and groundglass opacities in the lungs with a periphera l predominance. There is a stable 5 mm nodule in right middle lobe, likely benign. Calcified bilatera l lung nodules are consistent with old granulomatous disease. There is a small left pleural effusion. Cardiomegaly is noted. There are coronary artery calcifications. There are changes of coronary arter y bypass grafting. No pericardial effusion. There is bilateral gynecomastia. Abdomen/pelvis/proximal thighs: There is a moderate-sized sliding hiatal hernia. The liver is normal. There are gallstones in the gallbladder, which is normal in size. The spleen, pancreas, adrenal glan ds, and kidneys are normal. There is calcified atherosclerosis of the aorta and many of the other art eries. 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 The prostate is mildly enla rged. There are brachytherapy seeds in the prostate. There are bilateral inguinal hernias containing fat. There is diverticulosis of the colon without evidence of diverticulitis. The appendix is normal. There are no pathologically enlarged lymph nodes. There is no free intraperitoneal fluid. There is n o osseous malignancy. IMPRESSION: 1. No evidence of malignancy. 2. Diffuse lung disease, likely mild pulmonary edema or pneumonia superimposed on chronic interstitia l lung disease. 3. Small left pleural effusion. Reviewed, dictated and finalized at location A. SAW OPERATOR IMPRESSION: 1. No evidence of malignancy. 2. Diffuse lung disease, likely mild pulmonary edema or pneumonia superimposed on chronic interstitial lung disease. 3. Small left pleural effusion.
== END 2023-11-30 12:45 | disposition home or self-care (01) ==
PROVIDERS: PCP Internal Medicine; Visit Provider Urology
DX: C61 Malignant neoplasm of prostate (principal); J90 Pleural effusion, not elsewhere classified; R91.8 Other nonspecific abnormal finding of lung field
CPT/HCPCS: 78815; A9595

== ENCOUNTER 2024-08-29 13:05 | Outpatient (CLI) | payer BC, MEDICARE, SELFPAY ==
--- NOTE | ~2024-08-29 | CT_ITS ---
CT Scan of the Chest without Contrast: Clinical Indication: Lung cancer history, nicotine dependence Technique: Contiguous sections were acquired throughout the chest without intravenous contrast. Dose reduction technique was used on this scan by utilizing automated exposure control and iterative recon struction technique. The dose-length product (DLP) was 242.39 mGy-cm. COMPARISON: 06/27/2023 Findings: There is no evidence of any significant mediastinal, hilar or axillary lymphadenopathy. There is exte nsive coronary artery calcification as well as atherosclerotic calcification of the aorta. There is no evidence of pleural or pericardial effusion. There are peripheral chronic interstitial changes in the lungs. Calcified left lower lobe granuloma p resent. Stable 5 mm right middle lobe pulmonary nodule (axial image 99). 15 mm pleural-based nodule a t the medial right lower lobe is increased from prior exam (axial image 119). Images through the upper abdomen reveal small calcified gallstones. Impression: Lung RADS 4P: Very suspicious. Increasing 15 mm pleural-based nodule at the medial right lung base. P ET/CT and/or tissue sampling are advised for further evaluation at this time. Reviewed, dictated and finalized at location . Impression: Lung RADS 4P: Very suspicious. Increasing 15 mm pleural-based nodule at the med ial right lung base. PET/CT and/or tissue sampling are advised for further eval uation at this time.
== END 2024-08-29 13:06 | disposition home or self-care (01) ==
PROVIDERS: PCP Internal Medicine; Visit Provider Internal Medicine
DX: Z12.2 Encounter for screening for malignant neoplasm of respiratory organs (principal); R91.1 Solitary pulmonary nodule; R91.8 Other nonspecific abnormal finding of lung field; Z87.891 Personal history of nicotine dependence
CPT/HCPCS: 71271

== ENCOUNTER 2024-09-13 10:31 | Outpatient (CLI) | payer BC, MEDICARE, SELFPAY ==
--- NOTE | ~2024-09-13 | PE_ITS ---
EXAMINATION: PET skull to mid thigh DATE: 09/13/2024 12:49 INDICATION: Solitary pulmonary nodule. TECHNIQUE: Blood glucose level was 121 mg/dL. 10.356 mCi of 18-fluorodeoxyglucose (18-FDG) was admini stered i.v. Low dose computed tomography (CT) images were acquired from the base of the brain to the proximal thighs for attenuation correction and anatomic localization. Automated exposure control was employed. Dose-length product (DLP) was 1026 mGy-cm. Positron emission tomography (PET) images were a cquired in the same distribution. COMPARISON: chest CT 08/29/2024, 06/27/23 FINDINGS: Head/neck: There are no pathologically enlarged lymph nodes. Chest: There is mild emphysema. There are widespread peripheral groundglass airspace opacities and se ptal thickening. There is a chronic 6 mm nodule in right middle lobe, likely benign. There is a 1.3 c m nodule in right lung lower lobe with maximum SUV of 2.9. There are trace bilateral pleural effusion s. Calcified pulmonary nodules are consistent with old granulomatous disease. There is mild right hil ar and mediastinal lymphadenopathy. For example, there is a 2.0 x 1.1 cm high right paratracheal node with maximum SUV of 3.3. Cardiomegaly is noted. There are coronary artery calcifications. There are changes of coronary artery bypass grafting. No pericardial effusion. There is a moderate-sized slidin g hiatal hernia. There is bilateral gynecomastia. Abdomen/pelvis/proximal thighs: Calcifications in the liver and spleen are consistent with old edemat ous disease. There are gallstones in the gallbladder, which is normal in size. There are calcificatio ns in the pancreas, consistent with chronic pancreatitis. The adrenal glands and kidneys are normal. There is calcified atherosclerosis of the aorta and many of the other arteries. The prostate is mildl y enlarged. There are brachytherapy seeds in the prostate. There are bilateral inguinal hernias conta ining fat. There is diverticulosis of the colon without evidence of diverticulitis. The appendix is n ormal. There are no dilated loops of bowel. There are no pathologically enlarged lymph nodes. There i s no free intraperitoneal fluid. There is a 3.0 cm fusiform aneurysm of infrarenal aorta. There is se augustin lumbar spondylosis. IMPRESSION: 1. 1.3 cm nodule in right lung lower lobe with mildly increased activity suspicious for primary bronc hogenic carcinoma. CT-guided biopsy is recommended. 2. Chronic mild right hilar and mediastinal lymphadenopathy, now with mildly increased activity, cons istent with reactive lymphadenopathy or less likely metastatic disease. 3. Mild emphysema and chronic interstitial lung disease. Reviewed, dictated and finalized at location A. IMPRESSION: 1. 1.3 cm nodule in right lung lower lobe with mildly increased activity suspic ious for primary bronchogenic carcinoma. CT-guided biopsy is recommended. 2. Chronic mild right hilar and mediastinal lymphadenopathy, now with mildly in creased activity, consistent with reactive lymphadenopathy or less likely metas tatic disease. 3. Mild emphysema and chronic interstitial lung disease.
[2024-09-13 11:02] LABS: Glucose Point of Care 121 mg/dl (65-105)
== END 2024-09-13 10:32 | disposition home or self-care (01) ==
PROVIDERS: PCP Internal Medicine; Visit Provider Internal Medicine
DX: R91.1 Solitary pulmonary nodule (principal)
CPT/HCPCS: 78815; A9552

== ENCOUNTER 2024-10-08 09:03 | Outpatient (CLI) | payer MEDICARE, BC, SELFPAY ==
[2024-10-01 11:18] VITALS: BMI 25.4
--- NOTE | 2024-10-01 11:18 | PC.NURSE ---
Pre Radiology instructions Report to the outpatient tonny oliveira on date __10/08/24___ at time ____9:00AM___ for procedure Time: _11:00AM___ YOU MAY BE MONITORED AT HOSPITAL FOR UP TO 4 HOURS AFTER YOUR PROCEDURE. A visitor will be allowed to accompany the patient into the hospital. You and your visitor will be asked to self-screen and do not enter if you have any COVID symptoms. A mask is OPTIONAL within the hospital. Patients are to have no food or drink 6 hours prior to procedure time Driving will be restricted after the procedure, you must have a person to drive you home. Labs will be drawn in preop area and once reviewed, you will be taken to radiology area for procedure. When the procedure is completed, you will be taken to outpatient where you will be monitored for several hours. You may have one visitor in this area. Other than holding anti-coagulants, patient may take other medication(s) as scheduled. Prior to your appointment date patients are instructed to hold anti-coagulants after discussing with ordering provider to stop. If unable to discontinue anti-coagulants please notify radiologist. ? No aspirin or warfarin (Coumadin) for 7 days prior to the procedure. ? No clopidogrel (Plavix), ticagrelor (Brilinta), prasugrel (Effient) or dabigatran (Pradaxa) for 5 days prior to the procedure. ? No rivaroxaban (Xarelto), apixaban (Eliquis), dipyridamole (Aggrenox or Persantine) or cilostazol (Pletal) for 2 days prior to the procedure. Medications to discontinue per physician: __HOLD ASPIRIN 7 DAYS PRE-PROCEDURE Date to take last dose: 09/30/24 Please leave all valuables, including medications, at home the day of procedure. The hospital will not accept responsibility for valuables. Wear comfortable, loose fitting clothing.? Follow any additional instructions given to you from ordering provider. Telephone instructions given to ____PATIENT and asked if any additional questions and then verbalized understanding. Patient advised to call scheduling provider office or registration scheduling [phone] if any additional questions.
[2024-10-08] VITALS (9 sets, daily range): BP systolic 129–163; BP diastolic 51–86; PULSE 57–71; RESP 15–20; TEMP 37.3; O2SAT 94–100
--- NOTE | ~2024-10-08 | CT_ITS ---
EXAMINATION: CT biopsy lung w/imaging DATE: 10/08/2024 12:24 INDICATION: 78-year-old gentleman with a personal history of prostate cancer presents with a PET posi tive nodule in the right lower lobe of the lung TECHNIQUE: The procedure including the risks, benefits, and alternatives was discussed with the patie nt and his . Risks discussed included bleeding, infection, pneumothorax, hemoptysis and inadequate tissue sampling . The patient and his understood the risks and agreed to proceed. The patient was brought to the CT scanner and placed in the prone position on the CT table. A timeout was then performed as per protocol. Limited scan of the chest demonstrated significant interstitial thickening and centrilobular emphysem a. A calcified nodule was redemonstrated within the left lung base. A moderate hiatal hernia was also noted as well as dense atherosclerotic calcifications of the thoracic aorta. The previously identified 13 mm nodule was redemonstrated at the medial pleural surface of the right lower lobe, suitable for biopsy. Marking of the overlying skin was made utilizing the shortest distance for adequate sampling. The right posterior chest wall was then prepped and draped in the standard sterile fashion. 1% lidocaine without epinephrine was utilized to scan and soft tissue analgesia. A 17-gauge introducer was then advanced through the posterior chest wall and directly into the PET po sitive abnormality within the right chest. Utilizing an 18-gauge biopsy device multiple specimens were obtained and placed immediately into form balta for pathologic evaluation. Post sampling imaging was then performed once all devices were removed which demonstrated trace peril esional hemorrhage without right-sided pneumothorax. Steri-Strips and a sterile dressing were applied The patient was then transported to the recovery area in stable condition. FINDINGS: Dedicated CT images during the biopsy demonstrate the introducer to be just 4 mm shy of the lesion, easily within reach with the 2 cm throw of the 18-gauge biopsy device. IMPRESSION: 1. Technically successful CT-guided core biopsy of a 13 mm PET positive pleural-based lesion along th e medial surface of the right lower lobe No immediate complications were encountered. Pathology is pending. Reviewed, dictated and finalized at location A. TER CREASER SLOTTER HELPER IMPRESSION: 1. Technically successful CT-guided core biopsy of a 13 mm PET positive pleural -based lesion along the medial surface of the right lower lobe No immediate complications were encountered. Pathology is pending.
--- NOTE | ~2024-10-08 | XR_ITS ---
CHEST RADIOGRAPH CLINICAL HISTORY: S/P RIGHT LUNG BX . COMPARISON: 10/07/2022 TECHNIQUE: Single portable view of the chest. FINDINGS Sternal wires and mediastinal clips are identified, the wires are midline and intact. The remainder of the cardiomediastinal silhouette is otherwise unremarkable. Calcified granuloma redemonstrated within the left mid to lower lung field. The right lung is fully inflated. Trace perilesional hemorrhage, consistent with recent intervention. Visualized osseous structures and soft tissues are unremarkable. IMPRESSION: No pneumothorax following right lung biopsy. Reviewed, dictated and finalized at location A. ER REPAIRER
--- NOTE | ~2024-10-08 | XR_ITS ---
XR chest 1V portable Ordering provider: Bela Soliman MD History: 78 years Male with . post R lung biopsy 2.5 HOURS . Comparison: None. FINDINGS: MEDIASTINUM: The cardiac silhouette is slightly enlarged. Congestive amina. Postoperative changes in t he mediastinum. LUNGS: No infiltrates or effusions. Lucency is seen in the right apical area which may be a tiny pneu mothorax. Follow-up advised. Prominent bronchovascular markings in the right lower lobe which may indicate atelectatic changes. OTHER: No free air under the diaphragm. IMPRESSION: Tiny lucency in the right apical area which may indicate pneumothorax. Follow-up in 2 hours is advise d. Reviewed, dictated and finalized at location A. NS OR GROUNDS SUPERINTENDENT IMPRESSION: Tiny lucency in the right apical area which may indicate pneumothorax. Follow-u p in 2 hours is advised.
[2024-10-08 09:56] LABS: Mean Platelet Volume 9.8 fl (7.4-10.4); Platelet Count Result 177 k/mm3 (150-375)
[2024-10-08 10:08] LABS: Prothrombin Time 14.1 Seconds (11.1-14.7)
--- NOTE | 2024-10-08 13:09 | PM.OP ---
Procedure Note - Brief Procedure Note - Brief Date of procedure: 10/08/24 Lung nodule, history of prostate cancer Procedure performed: CT guided R lung biopsy Surgeon: Bela Soliman MD Anesthesia: local Findings: nodule RLL - suitable for biopsy Description of procedure: sterile technique, CT guidance, prone positioning 17 G introducer utilized to gain access to the lesion in the RLL. Multiple 18G specimens obtained. Devices removed. No PTX via CT. Post op film x 2 w/o R PTX Estimated blood loss (mL): 0.1 Pathology: Yes Complications: None Condition: Stable Disposition: Same day
--- NOTE | 2024-10-08 13:54 | SUR.PHASEII ---
Notified Dr. Soliman regarding patient's new arrhythmia incidentally found during post op vitals. EKG ordered. Patient is asymptomatic at this time.
--- NOTE | 2024-10-08 13:58 | ECG_ITS ---
Test Date: 2024-10-08 14:14:28 Measurements Intervals Clarence Rate: 60 P: -29 NM: 315 QRS: 15 QRSD: 108 T: 39 QT: 541 QTc: 545 Interpretive Statements SINUS RHYTHM WITH SECOND DEGREE AV BLOCK, TYPE I POSSIBLE LEFT ATRIAL ENLARGEMENT CONSIDER ANTERIOR INFARCT, AGE INDETERMINATE INFERIOR INFARCT, AGE INDETERMINATE BORDERLINE T WAVE ABNORMALITY- ANTEROLATERAL LEADS ABNORMAL ECG No previous ECG available for comparison Electronically Signed On 10-08-2024 14:27:02 [employer] PLM CONSULTANT by Jose Trevino D.O.
== END 2024-10-08 15:10 | disposition home or self-care (01) ==
PROVIDERS: Radiology Diagnostic Radiology; PCP Internal Medicine; Visit Provider Radiology Diagnostic Radiology
PROC: BB24ZZZ Computerized Tomography (CT Scan) of Bilateral Lungs (ICD-10-PCS; CPT 32408; principal; 2024-10-08 11:00)
DX: R91.1 Solitary pulmonary nodule (principal); R93.89 Abnormal findings on diagnostic imaging of other specified body structures; R94.31 Abnormal electrocardiogram [ECG] [EKG]; I44.1 Atrioventricular block, second degree; R91.8 Other nonspecific abnormal finding of lung field; Z85.46 Personal history of malignant neoplasm of prostate
CPT/HCPCS: 32408; 36415; 71045; 85049; 85610; 88305; 88342; 93005

== ENCOUNTER 2024-12-26 14:53 | Outpatient (CLI) | payer BC, MEDICARE, SELFPAY ==
--- NOTE | ~2024-12-26 | CT_ITS ---
EXAMINATION:CT diagnostic chest wo con DATE: 12/26/2024 15:15 INDICATION: Solitary pulmonary nodule. TECHNIQUE: Computed tomography (CT) of the chest was performed without intravenous contrast. Automate d exposure control and iterative reconstruction technique were employed. The dose-length product (DLP ) was 126.63 mGy-cm. COMPARISON: Chest CT 08/29/2024, 06/27/23, 08/26/21 FINDINGS: There is mild emphysema. The lungs demonstrate widespread chronic peripheral septal thicken ing and small airspace opacities with architectural distortion. There is 11 mm nodule in right lower lobe that measured 13 mm on 08/25/2024. There is a 6 mm nodule in right middle lobe, stable from . A calcified left lung nodule is consistent with old granulomatous disease. There is a small left pleural effusion. There is left atrial enlargement of the heart. There are coronary artery calcificat ions. There are changes of coronary artery bypass grafting. There is mild bilateral gynecomastia. The re is a moderate-sized sliding hiatal hernia. There are gallstones in the gallbladder which is normal in size. Calcifications in the spleen are consistent with old granulomatous disease. There is severe cervical spondylosis, moderate thoracic spondylosis, and severe lumbar spondylosis. IMPRESSION: 1. 11 mm right lower lobe pulmonary nodule, decreased from 13 mm on 08/25/2024. Biopsy on 10/08/2024 d emonstrated metastatic prostatic adenocarcinoma. 2. Mild emphysema. Chronic interstitial lung disease. 3. Small left pleural effusion. 4. Moderate-sized sliding hiatal hernia. Reviewed, dictated and finalized at location A. E INTERCEPT TECHNICIAN IMPRESSION: 1. 11 mm right lower lobe pulmonary nodule, decreased from 13 mm on 08/25/2024. Biopsy on 10/08/2024 demonstrated metastatic prostatic adenocarcinoma. 2. Mild emphysema. Chronic interstitial lung disease. 3. Small left pleural effusion. 4. Moderate-sized sliding hiatal hernia.
--- OUTSIDE RECORDS SUMMARY | 2024-12-26 15:36 | XMS_ITS | CONTINUITY OF CARE DOCUMENT ---
Author Name hanhshaye antoinette Address Unknown Organization [facility] Office Address [address] [place] [address] Phone [phone] Care Team Providers Care Landman Name Role Phone Lilian SHULTZ, Merlin Unavailable [phone] CRIS CLEMENTE DO Unavailable COURTNEY SHULTZ, GARETT Unavailable INSURANCE PROVIDERS Payer name Policy type / Coverage type [place] red democrat ID BLUE [facility] Blue Shield [id number] [facility] MEDICARE COMPLETE HMO Other [id number]
--- OUTSIDE RECORDS SUMMARY | 2024-12-26 15:36 | XMS_ITS | Clinical Summary ---
Author Organization [facility] [address] Address [address] [place] [address] Care Team Providers Care Trust And Estates Attorney Name Role Phone Jimi Toure MD Primary Care Provider [phone] Allergies No known active allergies Medications aspirin (ASPIR-81) 81 mg tablet take 1 Tablet by oral route every day 0 0 12/25/2015 Active atorvastatin (LIPITOR) 80 mg tablet Take 1 tablet (80 mg total) by mouth daily 0 09/04/2018 Active losartan (COZAAR) 100 mg tablet Take 1 tablet (100 mg total) by mouth daily 1 08/12/2018 Active folic acid (FOLVITE) 1 mg tablet Take 1 tablet (1,000 mcg total) by mouth daily 11/02/2019 Active buPROPion XL (WELLBUTRIN XL) 150 mg 24 hr tablet Take 1 tablet (150 mg total) by mouth daily Active pantoprazole DR (PROTONIX) 40 mg EC tablet Take 1 tablet (40 mg total) by mouth every morning 03/08/2022 Active cholecalciferol (VITAMIN D-3) 25 mcg (1,000 unit) tablet Take 1 tablet (1,000 Units total) by mouth daily Active diphenhydrAMINE -acetaminophen (TYLENOL PM) 25-500 mg tablet Take 2 tablets by mouth nightly Active cyanocobalamin (Vitamin B-12) 500 mcg tabletIndicatio ns:Prevention of Vitamin B12 Deficiency Take 1 tablet (500 mcg total) by mouth daily Active Active Problems Problem Noted Date Diagnosed Date Tobacco use 08/02/2023 Acute chest pain 05/24/2022 Elevated troponin 05/24/2022 Overview (05/24/2022): Added automatically from request for surgery [id number] NSTEMI (non-ST elevated myocardial infarction) ( [facility]) 05/24/2022 Overview (05/24/2022): Added automatically from request for surgery [id number] Posterior vitreous detachment, both eyes 019 Nuclear age-related cataract, both eyes 07/25/20 19 Glaucoma suspect, both eyes 07/25/2019 Coronary artery disease invo lving [place] coronary artery of [place] heart without angina pectoris 07/27/2017 S/P CABG (coronary artery bypass graft) 07/27/20 17 Chronic coronary artery disease 11/27/2015 Internal hemorrhoids with complication 3 Pruritus ani 12/21/2011 Surgical History Surgery Date Site/Laterality Comments CORONARY ARTERY BYPASS GRAFT 11/13/2015 Medical History Medical History Date Comments Cataract Glaucoma Family History Medical History Relation Name Comments Diabetes Brother 1 boaz Diabetes Brother 2 don Heart attack Father Myocardial infa rction; Cause of : Myocardial infarction Other Mother Unknown; Cause of : Unknown Cataracts Neg Hx Glaucoma Neg Hx Macular degeneration Neg Hx Retinal detachment Neg Hx Relation Name Status Comments Brother 1 boaz Brother 2 don Alive Father (Age 62) Mother (Age 81) Social History Tobacco Use Types Packs/Day Years Used Date Smoking Tobacco: Heavy Smoker Cigarettes Smokeless Tobacco: Never Tobacco Cessation:Ready to Q uit: Not Asked; Counseling Given: Not Answered Comments:Smoking History Packs/day: 30 Cigarettes Alcohol Use Standard Drinks/Week Comments Yes 1 (1 standard drink = 0.6 oz pur e alcohol) occassionally Social Connection and Isolat ion Panel [NHANES] Answer Date Recorded In a typical week, how many times do you talk on the phone with family, friends, or neighbors? More than three times a week 05/26/2022 How often do you get togethe r with friends or relatives? More than three times a week 05/26/2022 How often do you attend chur or denominational services? Patient declined 05/26/2022 Do you belong to any clubs o r organizations such as jehovah's witness groups, unions, fraternal or athletic groups, or school groups? No 05/26/2022 How often do you attend meet ings of the clubs or organizations you belong to? Never 05/26/2022 Are you , , di vorced, , never , or living with a partner? Patient declined 05/26/2022 AUDIT-C Answer Date Recorded Q1: How often do you have a drink containing alc ohol? Monthly or less 05/24/2022 Q2: How many drinks containi ng alcohol do you have on a typical day when you are drinking? 1 or 2 05/24/2022 Q3: How often do you have si x or more drinks on one occasion? Never 05/24/2022 Overall Financial Resource Strain (CARDIA) Answe r Date Recorded How hard is it for you to pa y for the very basics like food, housing, medical care, and heating? Not hard at all 05/26/2022 Hunger Vital Sign Answer Date Recorded Within the past 12 months, y ou worried that your food would run out before you got the money to buy more. Never true 05/26/20 22 Within the past 12 months, t he food you bought just didn't last and you didn't have money to get more. Never true 05/26/2022 PRAPARE - Transportation Answer Date Re corded In the past 12 months, has l ack of transportation kept you from medical appointments or from getting medications? No 04/2022 In the past 12 months, has l ack of transportation kept you from meetings, work, or from getting things needed for daily living? 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 Gender Identity Not on file Sexual Orientation Not on file Obstetrics History Last Filed Vital Signs Vital Sign Reading Time Taken Comments Blood Pressure 168/72 08/07/2024 9:29 AM CDT Pulse 92 08/07/2024 9:29 AM CDT Temperature 36.6 C (97.9 F) 05/26/2022 3:00 AM CDT Respiratory Rate 18 05/26/2022 3:00 AM CDT Oxygen Saturation 96% 08/07/2024 9:29 AM CDT Inhaled Oxygen Concentration - - Weight 81 kg (178 lb 8 oz) 08/07/2024 9:29 AM CD T Height 182.9 cm (6') 08/07/2024 9:29 AM CDT Body Mass Index 24.21 08/07/2024 9:29 AM CDT Plan of Treatment Health Maintenance Due Date Last Done Comments Depression Screening 1945 Hepatitis C Screening 1945 DTaP/Tdap/Td Vaccine (1 - Tdap) 1958 Hepatitis B Screening 1965 Zoster Vaccine (1 of 2) 1997 Abdominal Aortic Aneurysm (A AA) Screen 2012 Well Visit 65+ 2012 Pneumococcal vaccine 65+ (2 of 2 - PCV) 07/09/2014 07/09/2013 Fall Risk Assessment 05/26/2023 05/26/2022 Influenza Vaccine (#1) 2024 9, 09/10/2018, 08/03/2017 Medical Devices Implanted Type Area Peer Tutor Device Identifier Shelf Expiration Date Model / Serial / Lot Decisionlink Synergy Xd Monorail 3mm 16mm 144cm Delivery System 1 Access Port [id number] - [id number] Implanted:Qty: 1 on 05/25/2022 by Merlin Quintana MD at [facility] [employer] 01/25/2024 [id number] 300 / / [id number] Decisionlink Synergy Xd Monorail 3mm 38mm 144cm Delivery System 1 Access Port [id number] - [id number] Implanted:Qty: 1 on 05/25/2022 by Merlin Quintana MD at [facility] [employer]lee 01/27/2024 [id number] 300 / / [id number] [employer] Device Clsr Perclose Prostyle Sut-Mediatd Closure-Repair Sys [id number] - [id number] Implanted:Qty: 1 on 05/25/2022 by Merlin Quintana MD at [facility] [employer] 03/20/2024 [id number] / / Insurance [facility] [place] MEDICARE SOLUTIONS MDCR HMO REF [place] Cued [facility] FEDERAL Advance Directives For more information, please contact: [phone] * Full Code (Latest Code Status on File) Date Activated Date Inactivated Comments 05/24/2022 4:34 PM 05/26/2022 6:38 PM Care Teams Trust And Estates Attorney Relationship Specialty Start Date End Date Jimi Toure MD [address] [place] [address] PCP - General 12/25/15
--- OUTSIDE RECORDS SUMMARY | 2024-12-26 15:36 | XMS_ITS | Referral Summary ---
Author Organization [facility] [address] Address [address] [place] [address] Care Team Providers Care Landscape Architect Name Role Phone Jimi Toure MD Primary Care Provider [phone] Allergies No known active allergies Medications aspirin [...] (05/24/2022): Added automatically from request for surgery [id number] NSTEMI (non-ST elevated myocardial infarction) ( [facility]) 05/24/2022 Overview (05/24/2022): Added automatically from request for surgery [id number] Posterior vitreous detachment, both eyes 019 Nuclear age-related cataract, both eyes 07/25/20 19 Glaucoma suspect, both eyes 07/25/2019 Coronary artery disease invo lving [place] coronary artery of [place] heart without angina pectoris 07/27/2017 S/P CABG (coronary artery bypass graft) 07/27/20 17 Chronic coronary artery disease 11/27/2015 Internal hemorrhoids with complication 3 Pruritus ani 12/21/2011 Social History Tobacco Use Types Packs/Day Years [...] week 05/26/2022 How often do you attend [facility] or advent services? 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 Gender Identity Not on file Sexual Orientation Not on file Last Filed Vital Signs Vital Sign Reading [...] 08/07/2024 9:29 AM CDT Plan of Treatment Not on file Medical Devices Implanted Type Area Manager Union Device Identifier Shelf Expiration Date Model / Serial / Lot [employer] Ashlee Synergy Xd Monorail 3mm 16mm 144cm Delivery System 1 Access Port [id number] - [id number] Implanted:Qty: 1 on 05/25/2022 by Merlin Quintana MD at [facility] [employer]lee 01/25/2024 [id number] 300 / / [id number] [place] [employer] [facility] Synergy Xd Monorail 3mm 38mm 144cm Delivery System 1 Access Port [id number] - [id number] Implanted:Qty: 1 on 05/25/2022 by Merlin Quintana MD at [facility] [employer]lee 01/27/2024 [id number] 300 / / [id number] Jacome V[employer] Device Clsr Perclose Prostyle Sut-Mediatd Closure-Repair Sys 15485-16 - [id number] Implanted:Qty: 1 on 05/25/2022 by Merlin Quintana MD at [facility] [employer] 03/20/2024 [id number] / / Insurance [facility]ICARE [facility] Address: [address] [address] [place] [address] [employer] [facility] Address: [address] [place] [address] MEDICARE [facility] MEDIC[facility] Address: [address] [address] [place] [address] [facility] FEDERAL Advance Directives For more information, please contact: [phone] * Full Code (Latest Code Status on File) Date Activated Date Inactivated Comments 05/24/2022 4:34 PM 05/26/2022 6:38 PM Care Teams Landscape Architect Relationship Specialty Start Date End Date Jimi Toure MD [address] [facility] [address] [facility] [address] [place] [address] PCP - General 12/25/15
--- OUTSIDE RECORDS SUMMARY | 2024-12-26 15:37 | XMS_ITS | Encounter Summary ---
Author Organization [facility] Address [address] [facility] [place] [address] Care Team Providers Care Director Targeted Marketing Name Role Phone Unavailable Primary Care Provider Unavailabl e Encounter Details Date Type Department Care Team (Late st Contact Info) Description 10/10/2024 Lab Requisition [facility] - Pathology Lab [address] [place] [id number] Jasson Bach MD [address] [place] [id number] Illness, unspecified Social History Tobacco Use Types Packs/Day Years Used Date Smoking Tobacco: Never Assessed Sex and Gender Information Value Date Recorded Sex Assigned at Not on file Gender Identity Not on file Sexual Orientation Not on file documented as of this encounter Plan of Treatment Not on file documented as of this encounter Procedures Procedure Name Priority Date/Time Associated Diagnosis Comments SLIDE PREP HISTOLOGY Routine 10/10/2024 1:25 PM CONSTRUCTION EQUIPMENT TECHNICIAN Illness, unspecified documented in this encounter Results * SLIDE PREP HISTOLOGY (10/10/2024 1:25 PM CONSTRUCTION EQUIPMENT TECHNICIAN) Client Specimen ID # [id number] 10/25/2024 9:58 AM CONSTRUCTION EQUIPMENT TECHNICIAN [facility] Number of Blocks Received 0 10/25/2024 9:58 AM CONSTRUCTION EQUIPMENT TECHNICIAN [facility] Number of Slides 1 10/25/2024 9:58 AM CONSTRUCTION EQUIPMENT TECHNICIAN [facility] Number of Control Slides 1 10/25/2024 9:58 AM CONSTRUCTION EQUIPMENT TECHNICIAN [facility] PATHOLOGY LAB Pathology/Cytolo gy SLIDE / Unknown 10/10/2024 1:25 PM CONSTRUCTION EQUIPMENT TECHNICIAN 10/10/2024 1:25 PM CONSTRUCTION EQUIPMENT TECHNICIAN Jasson Bach MD LAB - PATHO LOGY/CYTOLOGY ORDERABLES [facility] PATHOLOGY LAB [address] [facility]. [address] [phone] documented in this encounter Visit Diagnoses Diagnosis Illness, unspecified documented in this encounter
--- OUTSIDE RECORDS SUMMARY | 2024-12-26 15:37 | XMS_ITS | Clinical Summary ---
Author Organization [facility] Address [address] [facility] [place] [address] Care Team Providers Care Burlapper Name Role Phone Unavailable Primary Care Provider Unavailabl e Source Comments [facility],non-owned Affiliates and Associated Physician Practices is amultiple site organization consisting of ambulatory clinics and hospital sitesin [place], [place], [place] and [place]. This disclosure is being madepursuant to the Care Everywhere program and may not contain all information available regarding this patient. Last updated 18.[facility] Encounters Date Type Department Care Team Description 10/10/2024 Lab Requisition [facility] - Pathology Lab [address] [place] [address] Jasson Bach MD Illness, unspecified from Last 3 Months Social History Tobacco Use Types Packs/Day Years Used Date Smoking Tobacco: Never Assessed Sex and Gender Information Value Date Recorded Sex Assigned at Not on file Gender Identity Not on file Sexual Orientation Not on file Plan of Treatment Health Maintenance Due Date Last Done Comments HEPATITIS C SCREENING 12/17/1965 DTAP/TDAP/TD VACCINES (1 - Tdap) 1966 PNEUMOCOCCAL VACCINE 50+ (1 of 1 - PCV) 1997 ZOSTER VACCINE (1 of 2) 1997 Respiratory Syncytial Virus (RSV) Vaccine Pt: or over 60 yrs (1 - 1-dose 75+ series) 2022 COVID-19 VACCINE ( - 2023-2 5 season) 2024 INFLUENZA VACCINE (#1) 2024 DEPRESSION SCREENING 11/21/2024 MEDICARE AWV CALENDAR YEAR 2024 HEPATITIS B VACCINE Aged Out No longe r eligible based on patient's age to complete this topic HIB VACCINE Aged Out No longer eligi ble based on patient's age to complete this topic HPV VACCINE Aged Out No longer eligi ble based on patient's age to complete this topic MENINGOCOCCAL (Group B) VACCINE Aged Out No longer eligible based on patient's age to complete this topic MENINGOCOCCAL VACCINE Aged Out No brenden jazmyne eligible based on patient's age to complete this topic Procedures Procedure Name Priority Date/Time Associated Diagnosis Comments SLIDE PREP HISTOLOGY Routine 10/10/2024 1:25 PM GEOSPATIAL INFORMATION TECHNOLOGIST Illness, unspecified from Last 3 Months Results * SLIDE PREP HISTOLOGY (10/10/2024 1:25 PM GEOSPATIAL INFORMATION TECHNOLOGIST) Client Specimen ID # [id number] 10/25/2024 9:58 AM GEOSPATIAL INFORMATION TECHNOLOGIST [facility] PATHOLOGY LAB Number of Blocks Received 0 10/25/2024 9:58 AM GEOSPATIAL INFORMATION TECHNOLOGIST [facility] PATHOLOGY LAB Number of Slides 1 10/25/2024 9:58 AM GEOSPATIAL INFORMATION TECHNOLOGIST [facility] PATHOLOGY LAB Number of Control Slides 1 10/25/2024 9:58 AM GEOSPATIAL INFORMATION TECHNOLOGIST [facility] PATHOLOGY LAB Pathology/Cytolo gy SLIDE / Unknown 10/10/2024 1:25 PM GEOSPATIAL INFORMATION TECHNOLOGIST 10/10/2024 1:25 PM GEOSPATIAL INFORMATION TECHNOLOGIST Jasson Bach MD LAB - PATHO LOGY/CYTOLOGY ORDERABLES [facility] PATHOLOGY LAB [address] [facility]. [address] [phone] from Last 3 Months Destinee Duarte Personal/Family Self 1945
--- OUTSIDE RECORDS SUMMARY | 2024-12-26 15:37 | XMS_ITS | Patient Health Summary ---
Author Organization [facility] Address [address] [facility] [place] [address] Care Team Providers Care Montessori Paraprofessional Name Role Phone Unavailable Primary Care Provider Unavailabl e Note from [facility],non-owned Affiliates and Associated Physician Practices is amultiple site organization consisting of ambulatory clinics and hospital sitesin [place], [place], [place] and [place]. This disclosure is being madepursuant to the Care Everywhere program and may not contain all information available regarding this patient. Last updated 18.[facility] Social History Tobacco Use Types Packs/Day Years Used Date Smoking Tobacco: Never Assessed Sex and Gender Information Value Date Recorded Sex Assigned at Not on file Gender Identity Not on file Sexual Orientation Not on file Procedures * SLIDE PREP HISTOLOGY(Performed 10/10/2024) Performed for Illness, unspecified Results * SLIDE PREP HISTOLOGY (10/10/2024 1:25 PM MICA PLATE LAYER HAND) Client Specimen ID # [id number] 10/25/2024 9:58 AM MICA PLATE LAYER HAND [facility] PATHOLOGY LAB Number of Blocks Received 0 10/25/2024 9:58 AM MICA PLATE LAYER HAND [facility] PATHOLOGY LAB Number of Slides 1 10/25/2024 9:58 AM MICA PLATE LAYER HAND [facility] PATHOLOGY LAB Number of Control Slides 1 10/25/2024 9:58 AM MICA PLATE LAYER HAND [facility] PATHOLOGY LAB Pathology/Cytolo gy SLIDE / Unknown 10/10/2024 1:25 PM MICA PLATE LAYER HAND 10/10/2024 1:25 PM MICA PLATE LAYER HAND Jasson Bach MD LAB - PATHO LOGY/CYTOLOGY ORDERABLES [facility] PATHOLOGY LAB [address] [place], [place] [address] [phone]
--- OUTSIDE RECORDS SUMMARY | 2024-12-26 15:37 | XMS_ITS | Referral Summary ---
Author Organization [facility] Address [address] [facility] [place] [address] Care Team Providers Care Photographer News Name Role Phone Unavailable Primary Care Provider Unavailabl e Source Comments [facility],non-owned Affiliates and Associated Physician Practices is amultiple site organization consisting of ambulatory clinics and hospital sitesin [place], [place], [place] and [place]. This disclosure is being madepursuant to the Care Everywhere program and may not contain all information available regarding this patient. Last updated 18.[facility] Encounters Date Type Department Care Team Description 10/10/2024 Lab Requisition [facility] - Pathology Lab [address] [place] [address] Jasson Bach MD Illness, unspecified from Last 3 Months Social History Tobacco Use Types Packs/Day Years Used Date Smoking Tobacco: Never Assessed Sex and Gender Information Value Date Recorded Sex Assigned at Not on file Gender Identity Not on file Sexual Orientation Not on file Plan of Treatment Not on file Procedures Procedure Name Priority Date/Time Associated Diagnosis Comments SLIDE PREP HISTOLOGY Routine 10/10/2024 1:25 PM APPRENTICE PHOTOGRAPHER Illness, unspecified from Last 3 Months Results * SLIDE PREP HISTOLOGY (10/10/2024 1:25 PM APPRENTICE PHOTOGRAPHER) Client Specimen ID # [id number] 10/25/2024 9:58 AM APPRENTICE PHOTOGRAPHER [facility] Number of Blocks Received 0 10/25/2024 9:58 AM [facility] Number of Slides 1 10/25/2024 9:58 AM [facility] PATHOLOG[facility] LAB Number of Control Slides 1 10/25/2024 9:58 AM [facility] PATHOLOGY LAB Pathology/Cytolo gy SLIDE / Unknown 10/10/2024 1:25 PM APPRENTICE PHOTOGRAPHER 10/10/2024 1:25 PM APPRENTICE PHOTOGRAPHER Jasson Bach MD LAB - PATHO LOGY/CYTOLOGY ORDERABLES [facility] [address] [place] [address], [facility] [phone] from Last 3 Months Duarte Felipe Personal/Family Self 1945
== END 2024-12-26 14:54 | disposition home or self-care (01) ==
PROVIDERS: PCP Internal Medicine; Visit Provider Internal Medicine
DX: R91.1 Solitary pulmonary nodule (principal); C61 Malignant neoplasm of prostate; C78.00 Secondary malignant neoplasm of unspecified lung; J43.9 Emphysema, unspecified; J90 Pleural effusion, not elsewhere classified; K44.9 Diaphragmatic hernia without obstruction or gangrene
CPT/HCPCS: 71250

== ENCOUNTER 2025-05-10 15:03 | Outpatient (CLI) | payer BC, MEDICARE, SELFPAY ==
--- NOTE | ~2025-05-10 | XR_ITS ---
AP view of the pelvis and AP and lateral views of the left hip Clinical history: Pain Findings: No acute fracture or dislocation is seen. Osseous alignment is anatomic. Minimal degenerati ve change of both hip joints and both SI joints noted. Soft tissues are unremarkable. Impression: Minimal degenerative changes, as above. Reviewed, dictated and finalized at location M. Impression: Minimal degenerative changes, as above.
== END 2025-05-10 15:04 | disposition home or self-care (01) ==
PROVIDERS: PCP Internal Medicine; Visit Provider Internal Medicine
DX: M25.552 Pain in left hip (principal)
CPT/HCPCS: 73502